=== PATIENT | male | born 1955 | race Caucasian/White ===

== ENCOUNTER 2017-05-09 10:42 | Emergency (ER) | payer MEDICARE, BC ==
--- NOTE | 2017-05-09 11:03 | ER Document Report ---
ED Medical Screen (RME) - General Chief Complaint: General Weakness Stated Complaint: WEAKNESS,URINARY PAIN Time Seen by Provider: 05/09/17 10:56 Mode of Arrival: Wheelchair Information source: Patient TRAVEL OUTSIDE OF THE [place] IN LAST 30 DAYS: No - HPI Patient complains to provider of: dysuria Onset: Other - 2 months Notes: 05/09/17 11:02 Patient is a 61-year-old male who recently moved to the area from [facility] while driving here Easter weekend he had explosive diarrhea, he did not have enough clothing with him to change his clothes so he washed the clothes in a hotel bathroom and we were those closed for 2 more days, since then he is experiencing dysuria with urinary frequency and incontinence at night which is unusual for him, he also complains of erythematous scabbed rash to his bilateral upper extremities, stating that he was previously treated for scabies with permethrin cream which does not seem to be helping - Related Data Allergies/Adverse Reactions: pregabalin [From Lyrica] Allergy (Verified 05/09/17 10:46) Past Medical History Renal/ Medical History: Denies: Hx Peritoneal Dialysis Physical Exam - Vital signs Vitals: Temp Pulse Resp BP Pulse Ox 98.0 F 76 16 126/67 H 96 05/09/17 10:47 05/09/17 10:47 05/09/17 10:47 05/09/17 10:47 05/09/17 10:47 Course - Vital Signs Vital signs: Temp Pulse Resp BP Pulse Ox 98.0 F 76 16 126/67 H 96 05/09/17 10:47 05/09/17 10:47 05/09/17 10:47 05/09/17 10:47 05/09/17 10:47
[2017-05-09 11:23] LABS: ABSOLUTE EOSINOPHILS # (AUTO) 0.1 10^3/uL (0.0-0.6); ABSOLUTE MONOCYTES (AUTO) 0.7 10^3/uL (0.1-1.4); ABSOLUTE NEUT (AUTO) 4.3 10^3/uL (1.7-8.2); BASOPHILS % (AUTO) 0.5 % (0-2); EOSINOPHILS % (AUTO) 2.4 % (0-6); HEMATOCRIT 34.8 % (37.9-51.0); HEMOGLOBIN 11.6 g/dL (13.5-17.0); LYMPHOCYTES % (AUTO) 16.5 % (13-45); MEAN CORPUSCULAR HEMOGLOBIN 31.1 pg (27.0-33.4); MEAN CORPUSCULAR HGB CONC 33.4 g/dL (32.0-36.0); MEAN CORPUSCULAR VOLUME 93 fl (80-97); MONOCYTES % (AUTO) 10.8 % (3-13); RED BLOOD COUNT 3.75 10^6/uL (4.35-5.55); RED CELL DISTRIBUTION WIDTH 14.5 % (11.5-14.0); SEGMENTED NEUTROPHILS % (AUTO) 69.8 % (42-78); WHITE BLOOD COUNT 6.1 10^3/uL (4.0-10.5)
--- NOTE | 2017-05-09 11:27 | ER Document Report ---
ED General - General Chief Complaint: General Weakness Stated Complaint: WEAKNESS,URINARY PAIN Time Seen by Provider: 05/09/17 10:56 Mode of Arrival: Wheelchair Information source: Patient, Relative Notes: 61 yr old male who travelled here from [place] 2 months ago and has not seen any physicians presents with complaints of urinary incontinence and weakness. pt is a diabetic, denies any fevers or chills, denies any burning of urination TRAVEL OUTSIDE OF THE [place] IN LAST 30 DAYS: No - HPI Onset: Other Onset/Duration: Persistent Quality of pain: No pain Severity: Mild Pain Level: Denies Associated symptoms: Weakness, Other Exacerbated by: Denies Relieved by: Denies Similar symptoms previously: No Recently seen / treated by doctor: No - Related Data Allergies/Adverse Reactions: pregabalin [From Lyrica] Allergy (Verified 05/09/17 10:46) Past Medical History - General Information source: Patient - Social History Smoking Status: Never Smoker Cigarette use (# per day): No Chew tobacco use (# tins/day): No Smoking Education Provided: No Frequency of alcohol use: None Drug Abuse: None Family History: Reviewed & Not Pertinent Patient has suicidal ideation: No Patient has homicidal ideation: No Endocrine Medical History: Reports: Hx Diabetes Mellitus Type 2 Renal/ Medical History: Denies: Hx Peritoneal Dialysis Musculoskeltal Medical History: Reports Hx Arthritis - Immunizations Hx Diphtheria, Pertussis, Tetanus Vaccination: No Review of Systems - Review of Systems Notes: REVIEW OF SYSTEMS: CONSTITUTIONAL : Denies fever, chills, or sweats. Denies recent illness. EENT: Denies eye, ear, throat, or mouth pain or symptoms. Denies nasal or sinus congestion or discharge. Denies throat, tongue, or mouth swelling or difficulty swallowing. CARDIOVASCULAR: Denies chest pain. Denies palpitations or racing or irregular heart beat. Denies ankle edema. RESPIRATORY: Denies cough, cold, or chest congestion. Denies shortness of breath, difficulty breathing, or wheezing. GASTROINTESTINAL: Denies abdominal pain or distention. Denies nausea, vomiting , or diarrhea. Denies blood in vomitus, stools, or per rectum. Denies black, tarry stools. Denies constipation. GENITOURINARY: admits to urinary frequency MUSCULOSKELETAL: Denies back or neck pain or stiffness. Denies joint pain or swelling. SKIN: admits to bug bites HEMATOLOGIC : Denies easy bruising or bleeding. LYMPHATIC: Denies swollen, enlarged glands. NEUROLOGICAL: admits to weakness PSYCHIATRIC: Denies anxiety or stress. Denies depression, suicidal ideation, or homicidal ideation. ALL OTHER SYSTEMS REVIEWED AND NEGATIVE. Dictation was performed using [employer] voice recognition software PHYSICAL EXAMINATION: GENERAL: Well-appearing, well-nourished and in no acute distress. HEAD: Atraumatic, normocephalic. EYES: Pupils equal round and reactive to light, extraocular movements intact, sclera anicteric, conjunctiva are normal. ENT: Nares patent, oropharynx clear without exudates. Moist mucous membranes. NECK: Normal range of motion, supple without lymphadenopathy LUNGS: Breath sounds clear to auscultation bilaterally and equal. No wheezes rales or rhonchi. HEART: Regular rate and rhythm without murmurs ABDOMEN: Soft, mild abdominal distention fluid level noted Musculoskeletal: Normal range of motion, no pitting or edema. No cyanosis. NEUROLOGICAL: Cranial nerves grossly intact. Normal speech, normal gait. Normal sensory, motor exams PSYCH: Normal mood, normal affect. SKIN: admits to mild erythema around the wounds Physical Exam - Vital signs Vitals: Temp Pulse Resp BP Pulse Ox 98.0 F 76 16 126/67 H 96 05/09/17 10:47 05/09/17 10:47 05/09/17 10:47 05/09/17 10:47 05/09/17 10:47 Course - Re-evaluation Re-evalutation: 05/09/17 11:27 pt is an unctrolled diabetic, pt will definitly require pcp 05/09/17 15:35 PT is consistent with ascites, patient wishes to have outpatient workup, I will have him take his diuretics which she is not taking and have ordered a paracentesis to evaluate the fluid which I believe is secondary to portal hypertension from cirrhosis. I spoke with the research lab assistant who requested the patient follow-up on Thursday morning Given the patient in no distress at this time deny having difficulty breathing I believe this is appropriate son has been instructed to bring back immediately if there are any other concerns After performing a Medical Screening Examination, I estimate there is LOW risk for ACUTE APPENDICITIS, BOWEL OBSTRUCTION, ACUTE CHOLECYSTITIS, PERFORATED DIVERTICULITIS, INCARCERATED HERNIA, PANCREATITIS, or PERFORATED ULCER, thus I consider the discharge disposition reasonable. Also, there is no evidence or peritonitis, sepsis, or toxicity. I have reevaluated this patient multiple times and no significant life threatening changes are noted. The patient and I have discussed the diagnosis and risks, and we agree with discharging home with close follow-up with the understanding that symptoms and presentations can change. We also discussed returning to the Emergency Department immediately if new or worsening symptoms occur. We have discussed the symptoms which are most concerning (e.g., bloody stool, fever, changing or worsening pain, intractable vomiting - standard verbal up date) that necessitate immediate return. - Vital Signs Vital signs: Temp Pulse Resp BP Pulse Ox 98.0 F 76 16 126/67 H 96 05/09/17 10:47 05/09/17 10:47 05/09/17 10:47 05/09/17 10:47 05/09/17 10:47 - Laboratory Result Diagrams: 05/09/17 11:10 05/09/17 11:10 Laboratory results interpreted by me: 05/09/17 05/09/17 05/09/17 11:10 11:10 11:52 RBC 3.75 L Hgb 11.6 L Hct 34.8 L RDW 14.5 H Plt Count 136 L Potassium 3.4 L Glucose 240 H Total Bilirubin 2.6 H Direct Bilirubin 0.8 H Albumin 3.0 L Urine Protein 30 H Urine Blood LARGE H - Diagnostic Test Radiology reviewed: Image reviewed, Reports reviewed - Ascites Discharge - Discharge Clinical Impression: Weakness, Portal hypertension, Hyperglycemia Ascites Qualifiers: Ascites type: other type Qualified Code(s): R18.8 - Other ascites Condition: Stable Disposition: HOME, SELF-CARE Additional Instructions: Ascites is the accumulation of protein-containing (ascitic) fluid within the abdomen. * Many disorders can cause ascites, but the most common is high blood pressure in the veins that bring blood to the liver (portal hypertension), which is usually due to cirrhosis. * If large amounts of fluid accumulate, the abdomen becomes very large, sometimes making people lose their appetite and feel short of breath and uncomfortable. * Analysis of the fluid can help determine the cause. * Usually, a low-sodium diet and diuretics can help eliminate excess fluid. * * You must have a paracentesis performed to analyze the fluid Forms: Follow-Up Radiology Testing
[2017-05-09 11:39] LABS: ALANINE AMINOTRANSFERASE 29 U/L (21-72); ALKALINE PHOSPHATASE 116 U/L (38-126); ANION GAP 9 (5-19); ASPARTATE AMINO TRANSFERASE 30 U/L (17-59); BILIRUBIN,DIRECT 0.8 mg/dL (0.0-0.4); BILIRUBIN,TOTAL 2.6 mg/dL (0.2-1.3); BLOOD UREA NITROGEN 9 mg/dL (7-20); CALCIUM 8.5 mg/dL (8.4-10.2); CARBON DIOXIDE 30 mmol/L (22-30); CHLORIDE 99 mmol/L (98-107); CREATININE RESULT 0.86 mg/dL (0.52-1.25); GLUCOSE 240 mg/dL (75-110); POTASSIUM 3.4 mmol/L (3.6-5.0); TOTAL PROTEIN 7.3 g/dL (6.3-8.2)
[2017-05-09 12:25] LABS: APPEARANCE,URINE CLEAR; BILIRUBIN,URINE NEGATIVE (NEGATIVE); GLUCOSE, URINE NEGATIVE (NEGATIVE); KETONES,URINE NEGATIVE (NEGATIVE); LEUKOCYTE ESTERASE,URINE NEGATIVE (NEGATIVE); NITRITE,URINE NEGATIVE (NEGATIVE); PROTEIN,URINE 30 mg/dL (NEGATIVE); URINE SPECIFIC GRAVITY 1.006; UROBILINOGEN,URINE NEGATIVE mg/dL (<2.0)
--- NOTE | 2017-05-09 14:35 | RADIOLOGY REPORT (SQ) ---
EXAM DESCRIPTION: CT LTD RENAL STONE PROTOCOL ON COMPLETED DATE/TIME: 05/09/2017 1:57 pm REASON FOR STUDY: hematuria COMPARISON: None. TECHNIQUE: CT scan of the abdomen and pelvis performed without intravenous or oral contrast. Images reviewed with lung, soft tissue, and bone windows. Reconstructed coronal and sagittal MPR images revi ewed. All images stored on PACS. All CT scanners at this facility use dose modulation, iterative reconstruction, and/or weight based d osing when appropriate to reduce radiation dose to as low as reasonably achievable (ALARA). [facility]: Dose Right [facility]: CareDose [facility]: Dose Right [facility]: Teradose 4D [facility]: [employer] RADIATION DOSE: 26.58mGy. LIMITATIONS: None. FINDINGS: LOWER CHEST: Bibasilar bandlike atelectasis. NON-CONTRASTED LIVER, SPLEEN, ADRENALS: Liver is small with a nodular contour indicating cirrhosis. Splenomegaly, 14 cm in length. Adrenal glands unremarkable PANCREAS: No masses. No peripancreatic inflammatory changes. GALLBLADDER: No identified stones by CT criteria. No inflammatory changes to suggest cholecystitis. RIGHT KIDNEY AND URETER: No suspicious masses. Assessment limited by lack of IV contrast. No signif icant calcifications. No hydronephrosis or hydroureter. LEFT KIDNEY AND URETER: No suspicious masses. Assessment limited by lack of IV contrast. No signifi cant calcifications. No hydronephrosis or hydroureter. AORTA AND RETROPERITONEUM: No aneurysm. No retroperitoneal masses or adenopathy. BOWEL AND PERITONEAL CAVITY: Large amount of ascites throughout the abdomen and pelvis. No CT eviden ce of bowel obstruction. APPENDIX: Not identified PELVIS, BLADDER, AND ABDOMINAL WALL:Large amount of free pelvic fluid. Limited view of the bladder a nd rectum are unremarkable. No adenopathy. BONES: Diffuse degenerative disc changes. OTHER: No other significant finding. IMPRESSION: Thyroid chest with portal hypertension, splenomegaly, and ascites No CT findings to explain history of hematuria TECHNICAL DOCUMENTATION: JOB ID: [id number] Quality ID # [id number]: Final reports with documentation of one or more dose reduction techniques (e.g., Au tomated exposure control, adjustment of the mA and/or kV according to patient size, use of iterative reconstruction technique) 2010 [employer]- All Rights Reserved
[2017-05-09 15:40] LABS: PROTHROMBIN TIME 16.1 SEC (11.4-15.4)
[2017-05-09 16:15] VITALS: BP 120/74
== END 2017-05-09 16:15 | disposition home or self-care (01) ==
LOC: ER 10:42
DX: E11.65 Type 2 diabetes mellitus with hyperglycemia (principal); I10 Essential (primary) hypertension; R53.1 Weakness; R18.8 Other ascites; R30.9 Painful micturition, unspecified
CPT/HCPCS: 36415; 76380; 80053; 81001; 85025; 85610; 87086; 99285

== ENCOUNTER 2017-06-02 14:01 | Emergency (ER) | payer MEDICARE, BC ==
--- NOTE | 2017-06-02 14:06 | ER Document Report ---
ED General - General Stated Complaint: WEAKNESS Mode of Arrival: Medic Information source: Patient, Emergency Med Personnel Notes: 61-year-old male presents with complaints of UTI and generalized weakness unable to ambulate and extensive swelling of lower extremities. Patient has been unable to get off his couch has not been able to ambulate. TRAVEL OUTSIDE OF THE [place] IN LAST 30 DAYS: No - HPI Onset: Last week Onset/Duration: Persistent Quality of pain: No pain Severity: Moderate Pain Level: Denies Associated symptoms: Weakness Exacerbated by: Denies Relieved by: Denies Similar symptoms previously: Yes Recently seen / treated by doctor: Yes - Related Data Allergies/Adverse Reactions: pregabalin [From Lyrica] Allergy (Verified 06/02/17 16:51) Past Medical History - Social History Smoking Status: Never Smoker Cigarette use (# per day): No Chew tobacco use (# tins/day): No Smoking Education Provided: No Family History: Reviewed & Not Pertinent Endocrine Medical History: Reports: Hx Diabetes Mellitus Type 2 Renal/ Medical History: Denies: Hx Peritoneal Dialysis Musculoskeltal Medical History: Reports Hx Arthritis - Immunizations Hx Diphtheria, Pertussis, Tetanus Vaccination: No Review of Systems - Review of Systems Notes: REVIEW OF SYSTEMS: CONSTITUTIONAL : Denies fever, chills, or sweats. Denies recent illness. EENT: Denies eye, ear, throat, or mouth pain or symptoms. Denies nasal or sinus congestion or discharge. Denies throat, tongue, or mouth swelling or difficulty swallowing. CARDIOVASCULAR: Denies chest pain. Denies palpitations or racing or irregular heart beat. Denies ankle edema. RESPIRATORY: Denies cough, cold, or chest congestion. Denies shortness of breath, difficulty breathing, or wheezing. GASTROINTESTINAL: Denies abdominal pain or distention. Denies nausea, vomiting , or diarrhea. Denies blood in vomitus, stools, or per rectum. Denies black, tarry stools. Denies constipation. GENITOURINARY: Denies difficulty urinating, painful urination, burning, frequency, blood in urine, or discharge. MUSCULOSKELETAL: Denies back or neck pain or stiffness. Denies joint pain or swelling. SKIN: Denies rash, lesions or sores. HEMATOLOGIC : Denies easy bruising or bleeding. LYMPHATIC: Denies swollen, enlarged glands. NEUROLOGICAL: Generalized weakness PSYCHIATRIC: Denies anxiety or stress. Denies depression, suicidal ideation, or homicidal ideation. ALL OTHER SYSTEMS REVIEWED AND NEGATIVE. Dictation was performed using [employer] voice recognition software PHYSICAL EXAMINATION: GENERAL: Morbidly obese male HEAD: Atraumatic, normocephalic. EYES: Pupils equal round and reactive to light, extraocular movements intact, sclera anicteric, conjunctiva are normal. ENT: Nares patent, oropharynx clear without exudates. Moist mucous membranes. NECK: Normal range of motion, supple without lymphadenopathy LUNGS: Breath sounds clear to auscultation bilaterally and equal. No wheezes rales or rhonchi. HEART: Regular rate and rhythm without murmurs ABDOMEN: Soft, large abdominal Musculoskeletal: 3 pitting edema bilateral lower extremity NEUROLOGICAL: Generalized weakness PSYCH: Normal mood, normal affect. SKIN: Warm, Dry, normal turgor, no rashes or lesions noted. Physical Exam - Vital signs Vitals: Temp Pulse BP Pulse Ox 97.5 F 78 93/45 L 96 06/02/17 14:19 06/02/17 14:19 06/02/17 14:19 06/02/17 14:19 Course - Re-evaluation Re-evalutation: 06/02/17 14:06 Lab work pending I expect admission given patient is unable to even ambulate 06/02/17 18:57 Patient pending admission for hypoxemia this of heart failure fluid overload awaiting hospitalist 06/02/17 19:37 Pt intermittently hypotensive, given another fluid bolus, attempted to [facility] to [facility], deferred due to lack of icu bed. 06/02/17 19:38 vidant paged for transfer 06/02/17 19:54 Spoke with program paraprofessional accepting on behalf of Dr Coley 06/02/17 20:11 - Vital Signs Vital signs: Temp Pulse Resp BP Pulse Ox 97.3 F 78 0 L 100/52 L 94 06/02/17 17:01 06/02/17 14:19 06/02/17 19:39 06/02/17 19:40 06/02/17 19:40 - Laboratory Result Diagrams: 06/02/17 14:53 06/02/17 14:53 Laboratory results interpreted by me: 06/02/17 06/02/17 06/02/17 14:53 14:53 14:53 RBC 3.57 L Hgb 11.3 L Hct 33.7 L RDW 15.6 H Plt Count 143 L Lymphocytes % 12.8 L PT 18.4 H VBG HCO3 Sodium 135.3 L Chloride 96 L BUN 26 H Creatinine 1.62 H Est GFR ( Amer) 53 L Est GFR (Non-Af Amer) 44 L Glucose 237 H POC Glucose Lactic Acid Total Bilirubin 2.7 H Direct Bilirubin 1.0 H Creatine Kinase NT-Pro-B Natriuret Pep Albumin 2.6 L Urine Urobilinogen 06/02/17 06/02/17 06/02/17 14:53 14:53 14:53 RBC Hgb Hct RDW Plt Count Lymphocytes % PT VBG HCO3 32.2 H Sodium Chloride BUN Creatinine Est GFR ( Amer) Est GFR (Non-Af Amer) Glucose POC Glucose Lactic Acid 2.5 H Total Bilirubin Direct Bilirubin Creatine Kinase 44 L NT-Pro-B Natriuret Pep Albumin Urine Urobilinogen 06/02/17 06/02/17 06/02/17 14:53 16:28 16:33 RBC Hgb Hct RDW Plt Count Lymphocytes % PT VBG HCO3 Sodium Chloride BUN Creatinine Est GFR ( Amer) Est GFR (Non-Af Amer) Glucose POC Glucose 217 H Lactic Acid Total Bilirubin Direct Bilirubin Creatine Kinase NT-Pro-B Natriuret Pep 1200 H Albumin Urine Urobilinogen 2.0 H - Diagnostic Test Radiology reviewed: Image reviewed, Reports reviewed - cardiac silhouette enlargement - EKG Interpretation by Me EKG shows normal: Sinus rhythm, [place], Intervals, QRS Complexes Discharge - Discharge Clinical Impression: Morbid obesity, Peripheral edema, Weakness Hypotension Qualifiers: Hypotension type: unspecified hypotension type Qualified Code(s): I95.9 - Hypotension, unspecified Condition: Poor Disposition: [facility]
[2017-06-02] MEDS ORDERED: NORMAL SALINE 1000 ML 1,000 ML IV ONE ×2 (14:31→19:21)
[2017-06-02 15:14] LABS: VENOUS BLOOD BASE EXCESS 6.1 mmol/L; VENOUS BLOOD HCO3 32.2 mmol/L (20-32); VENOUS BLOOD PCO2 53.2 mmHg (35-63); VENOUS BLOOD PH 7.4 (7.30-7.42)
[2017-06-02 15:20] LABS: ABSOLUTE BASOPHILS # (AUTO) 0.1 10^3/uL (0.0-0.2); ABSOLUTE EOSINOPHILS # (AUTO) 0.1 10^3/uL (0.0-0.6); ABSOLUTE LYMPHOCYTES (AUTO) 1.1 10^3/uL (0.5-4.7); ABSOLUTE NEUT (AUTO) 6.6 10^3/uL (1.7-8.2); BASOPHILS % (AUTO) 0.6 % (0-2); EOSINOPHILS % (AUTO) 1.3 % (0-6); HEMATOCRIT 33.7 % (37.9-51.0); HEMOGLOBIN 11.3 g/dL (13.5-17.0); HGB HCT DIFFERENCE 0.2; LYMPHOCYTES % (AUTO) 12.8 % (13-45); MEAN CORPUSCULAR HEMOGLOBIN 31.5 pg (27.0-33.4); MEAN CORPUSCULAR HGB CONC 33.4 g/dL (32.0-36.0); MEAN CORPUSCULAR VOLUME 94 fl (80-97); MONOCYTES % (AUTO) 11.6 % (3-13); RED BLOOD COUNT 3.57 10^6/uL (4.35-5.55); RED CELL DISTRIBUTION WIDTH 15.6 % (11.5-14.0); SEGMENTED NEUTROPHILS % (AUTO) 73.7 % (42-78)
[2017-06-02 15:24] LABS: PROTHROMBIN TIME 18.4 SEC (11.4-15.4)
[2017-06-02 15:41] LABS: ALANINE AMINOTRANSFERASE 23 U/L (21-72); ALBUMIN 2.6 g/dL (3.5-5.0); ALKALINE PHOSPHATASE 109 U/L (38-126); ANION GAP 10 (5-19); ASPARTATE AMINO TRANSFERASE 29 U/L (17-59); BILIRUBIN,TOTAL 2.7 mg/dL (0.2-1.3); BLOOD UREA NITROGEN 26 mg/dL (7-20); CALCIUM 8.4 mg/dL (8.4-10.2); CARBON DIOXIDE 29 mmol/L (22-30); CHLORIDE 96 mmol/L (98-107); CREATININE RESULT 1.62 mg/dL (0.52-1.25); GLUCOSE 237 mg/dL (75-110); POTASSIUM 4.1 mmol/L (3.6-5.0); SODIUM 135.3 mmol/L (137-145); TOTAL PROTEIN 6.9 g/dL (6.3-8.2)
[2017-06-02 16:47] LABS: APPEARANCE,URINE CLEAR; BILIRUBIN,URINE NEGATIVE (NEGATIVE); GLUCOSE, URINE NEGATIVE (NEGATIVE); KETONES,URINE NEGATIVE (NEGATIVE); LEUKOCYTE ESTERASE,URINE NEGATIVE (NEGATIVE); NITRITE,URINE NEGATIVE (NEGATIVE); PROTEIN,URINE NEGATIVE (NEGATIVE)
--- NOTE | 2017-06-02 18:04 | RADIOLOGY REPORT (SQ) ---
EXAM DESCRIPTION: CHEST PA/LAT COMPLETED DATE/TIME: 06/02/2017 5:49 pm REASON FOR STUDY: weakness COMPARISON: None. EXAM PARAMETERS: NUMBER OF VIEWS: two views TECHNIQUE: Digital Frontal and Lateral radiographic views of the chest acquired. RADIATION DOSE: NA LIMITATIONS: Study is limited due to the patient's body habitus and shallow inspiration. FINDINGS: LUNGS AND PLEURA: No opacities, masses or pneumothorax. No pleural effusion. Minimal line ar densities are identified most consistent with atelectatic changes. MEDIASTINUM AND HILAR STRUCTURES: No masses or contour abnormalities. HEART AND VASCULAR STRUCTURES: There is some prominence of the cardiac silhouette which may be in par t related to the shallow inspiration. A degree of pulmonary vascular congestion is seen which may al so be in part related to the shallow inspiration. BONES: No acute findings. HARDWARE: None in the chest. OTHER: No other significant finding. IMPRESSION: Limited study as noted above. No obvious consolidations or pleural effusions are identi fied. Other findings as noted above TECHNICAL DOCUMENTATION: JOB ID: [id number] [employer]- All Rights Reserved
[2017-06-02 18:10] LABS: CREATINE KINASE MB 1.32 ng/mL (<4.55); TROPONIN I 0.017 ng/mL
[2017-06-02] MEDS ORDERED: FUROSEMIDE INJ/PF 100 MG/10 ML SDV IV ONE (18:18)
--- NOTE | 2017-06-02 19:04 | EKG REPORT ---
SEVERITY:- ABNORMAL ECG - SINUS RHYTHM DIFFUSE NOSPECIFIC ST-T CHANGES : Confirmed by: Bayron Mancia MD 02-Jun-2017 19:03:52
[2017-06-02 21:20] VITALS: BP 111/56
== END 2017-06-02 21:25 | disposition short-term general hospital (02) ==
LOC: ER 14:01
DX: E66.01 Morbid (severe) obesity due to excess calories (principal); R60.9 Edema, unspecified; R53.1 Weakness; I95.9 Hypotension, unspecified; E11.9 Type 2 diabetes mellitus without complications
CPT/HCPCS: 93005; 99285; 51701; 36415; 87040; 87086; 82553; 82962; 82550; 85025; 85610; 80053; 81001; 84484; 82803; 83605; 83880; 71020; 93010; J7030

== ENCOUNTER 2017-07-12 23:20 | Inpatient (IN) | payer MEDICARE, BC ==
[2017-07-12] MEDS ORDERED: NORMAL SALINE 1000 ML 1,000 ML IV ONE (23:34)
--- NOTE | 2017-07-12 23:39 | ER Document Report ---
ED General - General Stated Complaint: ALTERED MENTAL STATUS Time Seen by Provider: 07/12/17 23:24 Cannot obtain history due to: Altered mental status Notes: Patient is a 61-year-old male with a past medical history of chronic kidney disease, liver cirrhosis with associated ascites, hypertension, and no additional known per EMS who presents with altered mental status and apparently one episode of a bloody bowel movement. EMS has minimal history stating only that the nursing facility reports that patient is not acting his pain is baseline which is typically alert, oriented and able to converse normally. This is apparently been ongoing for the past 36 hours. Staff became concerned when he apparently had a bloody bowel movement tonight. No additional history can be obtained as EMS does not have additional information and patient is completely unable to provide any meaningful history. TRAVEL OUTSIDE OF THE [place] IN LAST 30 DAYS: No - Related Data Allergies/Adverse Reactions: pregabalin [From Lyrica] Allergy (Verified 06/02/17 16:51) Past Medical History - General Information source: Emergency Med Personnel Cannot obtain history due to: Altered mental status - Social History Smoking Status: Unknown if Ever Smoked Lives with: [facility] Family History: Reviewed & Not Pertinent - Past Medical History Cardiac Medical History: Reports: Hx Hypertension Endocrine Medical History: Reports: Hx Diabetes Mellitus Type 2 Renal/ Medical History: Denies: Hx Peritoneal Dialysis Musculoskeltal Medical History: Reports Hx Arthritis Past Surgical History: Reports: Hx Orthopedic Surgery - Immunizations Hx Diphtheria, Pertussis, Tetanus Vaccination: No Review of Systems - Review of Systems -: Yes ROS unobtainable due to patient's medical condition Physical Exam - Vital signs Interpretation: Hypertensive, Tachycardic Notes: PHYSICAL EXAMINATION: GENERAL: Disheveled, morbidly obese, encephalopathic repeating the same phrase over and over again HEAD: Atraumatic, normocephalic. EYES: Pupils equal round and reactive to light, extraocular movements intact, sclera anicteric, conjunctiva are normal. ENT: nares patent, oropharynx clear without exudates. Moderately dry mucous membranes. NECK: Normal range of motion, supple without lymphadenopathy LUNGS: Breath sounds clear to auscultation bilaterally and equal. No wheezes rales or rhonchi. HEART: Regular rate and rhythm without murmurs ABDOMEN: Protuberant abdomen, positive fluid wave. Hepatosplenomegaly appreciated. Bowel sounds present. Rectal: Brown stool, no blood EXTREMITIES: Pitting edema in the bilateral lower extremities that is equal and symmetric. NEUROLOGICAL: No focal neurological deficits. Moves all extremities spontaneously. Patient will not follow commands PSYCH: Restless, altered, repeating the same phrase SKIN: Warm, Dry, normal turgor, there is a stage II sacral decubitus ulcer Course - Re-evaluation Re-evalutation: 07/12/17 23:36 Patient presents altered, continuously repeating "quiet down quite down shut up out there". He does not provide any meaningful history and is not able to answer any questions. His baseline is apparently awake alert and speaking in coherent sentences. Per EMS report patient also currently had a large bloody bowel movement prior to arrival which was the indication at the nursing facility sent him to the emergency department. Review of prior records indicates the patient has a history of liver failure, renal failure, and a history of prior urinary tract infections. Patient's initial vitals do show mild tachycardia initial rate 108, 97% on 3 L nasal cannula which is patient's baseline. He is also apparently had significantly decreased urine output in the last several days into the Morales bag. The Morales bag is noted to have a grossly dark, jovanna color urine. Patient does have prominent fluid ascites on immediate bedside ultrasound. A sample of this fluid was obtained shortly upon patient's arrival to evaluate for a possible spontaneous bacterial peritonitis. Patient is critically ill given his degree of altered mental status, tenuous vital signs, and concern for an active rectal bleed. 07/13/17 01:17 Patient has remained extremely altered continuing to repeat the same phrases before. Rectal exam shows absolutely no blood so I am uncertain of the accuracy of the report given by EMS of a bloody bowel movement as his diaper contained no blood and rectal examination showed only brown stool without even a trace of bright red blood. His hemoglobin is also at his baseline. Laboratories otherwise are concerning showing slightly worsening of his liver failure with an increased INR relative to his prior, slightly worse LFTs and elevated bilirubin to 3.3. His ammonia is also markedly elevated which I suspect is likely the etiology of his altered mental status. He also has an acute kidney injury superimposed on his baseline chronic kidney disease that appears to be a prerenal azotemia. BUN creatinine ratio greater than 20. No evidence of spontaneous bacterial peritonitis based on peritoneal tap. Chest x- ray is clear with exception of low lung volumes. Will give rectal lactulose. He has been given Lasix, dextrose and insulin for his hyperkalemia. Will also treat with a small dose of Haldol given his ongoing agitation and difficulty in continuing to comply with keeping lines and oxygen supplementation in place. I discussed this case with Dr. Olaf Bell who will admit. - Laboratory Result Diagrams: 07/12/17 23:50 07/12/17 23:50 Laboratory results interpreted by me: 07/12/17 07/12/17 07/12/17 23:50 23:50 23:50 RBC 3.34 L Hgb 11.5 L Hct 34.1 L MCV 102 H MCH 34.5 H RDW 18.1 H Lymphocytes % 10.3 L PT APTT VBG pCO2 VBG HCO3 Sodium 130.8 L Potassium 6.1 H* Chloride 91 L Carbon Dioxide 31 H BUN 78 H Creatinine 2.13 H Est GFR ( Amer) 38 L Est GFR (Non-Af Amer) 32 L Magnesium Total Bilirubin 3.3 H Direct Bilirubin 1.8 H AST 74 H Alkaline Phosphatase 156 H Ammonia 89.5 H Creatine Kinase 54 L Albumin 2.4 L 07/12/17 07/12/17 07/12/17 23:50 23:50 23:50 RBC Hgb Hct MCV MCH RDW Lymphocytes % PT 22.1 H APTT 46.8 H VBG pCO2 74.4 H* VBG HCO3 36.9 H Sodium Potassium Chloride Carbon Dioxide BUN Creatinine Est GFR ( Amer) Est GFR (Non-Af Amer) Magnesium 3.3 H Total Bilirubin Direct Bilirubin AST Alkaline Phosphatase Ammonia Creatine Kinase Albumin - Diagnostic Test Radiology reviewed: Image reviewed, Reports reviewed Radiology results interpreted by me: 07/13/17 01:29 Chest x-ray: No acute infiltrate or pneumothorax Critical Care Note - Critical Care Note Total time excluding time spent on procedures (mins): 45 Comments: Critical care time spent obtaining history from patient or surrogate, discussions with consultants, development of treatment plan with patient or surrogate, evaluation of patient's response to treatment, examination of patient , ordering and performing treatments and interventions, ordering and review of laboratory studies, re-evaluation of patient's condition, ordering and review of radiographic studies and review of old charts Discharge - Discharge Clinical Impression: Hyperammonemia, Acute kidney injury superimposed on chronic kidney disease, Hyperkalemia Altered mental status Qualifiers: Altered mental status type: delirium Qualified Code(s): R41.0 - Disorientation , unspecified Condition: Fair Disposition: ADMITTED INPATIENT [facility] Unit Admitted: [facility]
[2017-07-13 00:18] LABS: ABSOLUTE EOSINOPHILS # (AUTO) 0.2 10^3/uL (0.0-0.6); ABSOLUTE MONOCYTES (AUTO) 1.1 10^3/uL (0.1-1.4); ABSOLUTE NEUT (AUTO) 7.3 10^3/uL (1.7-8.2); BASOPHILS % (AUTO) 0.5 % (0-2); EOSINOPHILS % (AUTO) 2.1 % (0-6); HEMATOCRIT 34.1 % (37.9-51.0); HEMOGLOBIN 11.5 g/dL (13.5-17.0); HGB HCT DIFFERENCE 0.4; LYMPHOCYTES % (AUTO) 10.3 % (13-45); MEAN CORPUSCULAR HEMOGLOBIN 34.5 pg (27.0-33.4); MEAN CORPUSCULAR HGB CONC 33.8 g/dL (32.0-36.0); MEAN CORPUSCULAR VOLUME 102 fl (80-97); MONOCYTES % (AUTO) 11.1 % (3-13); RED BLOOD COUNT 3.34 10^6/uL (4.35-5.55); RED CELL DISTRIBUTION WIDTH 18.1 % (11.5-14.0); WHITE BLOOD COUNT 9.7 10^3/uL (4.0-10.5)
[2017-07-13 00:20] LABS: VENOUS BLOOD BASE EXCESS 7.8 mmol/L; VENOUS BLOOD HCO3 36.9 mmol/L (20-32); VENOUS BLOOD PH 7.31 (7.30-7.42)
--- NOTE | 2017-07-13 00:20 | RADIOLOGY REPORT (SQ) ---
EXAM DESCRIPTION: CHEST SINGLE VIEW COMPLETED DATE/TIME: 07/13/2017 12:01 am REASON FOR STUDY: ams, sob COMPARISON: 06/02/2017. EXAM PARAMETERS: NUMBER OF VIEWS: One view. TECHNIQUE: Single frontal radiographic view of the chest acquired. RADIATION DOSE: NA LIMITATIONS: None. FINDINGS: LUNGS AND PLEURA: Small lung volumes. Moderate right lower lobar bandlike atelectasis or scar. Small left basilar atelectasis/ opacity. MEDIASTINUM AND HILAR STRUCTURES: No masses. Contour normal. HEART AND VASCULAR STRUCTURES: Heart normal in size. Normal vasculature. BONES: No acute findings. HARDWARE: None in the chest. OTHER: No other significant finding. IMPRESSION: No significant interval change. Small lung volumes and small bibasilar opacities. TECHNICAL DOCUMENTATION: JOB ID: [id number]
[2017-07-13 00:22] LABS: VENOUS BLOOD PCO2 74.4 mmHg (35-63)
[2017-07-13 00:26] LABS: PROTHROMBIN TIME 22.1 SEC (11.4-15.4)
[2017-07-13 00:27] LABS: PARTIAL THROMBOPLASTIN TIME 46.8 SEC (23.5-35.8)
[2017-07-13 00:33] LABS: ALANINE AMINOTRANSFERASE 43 U/L (21-72); ALBUMIN 2.4 g/dL (3.5-5.0); ALKALINE PHOSPHATASE 156 U/L (38-126); ANION GAP 9 (5-19); ASPARTATE AMINO TRANSFERASE 74 U/L (17-59); BILIRUBIN,DIRECT 1.8 mg/dL (0.0-0.4); BILIRUBIN,TOTAL 3.3 mg/dL (0.2-1.3); BLOOD UREA NITROGEN 78 mg/dL (7-20); CALCIUM 8.4 mg/dL (8.4-10.2); CARBON DIOXIDE 31 mmol/L (22-30); CHLORIDE 91 mmol/L (98-107); CREATINE KINASE 54 U/L (55-170); CREATININE RESULT 2.13 mg/dL (0.52-1.25); GLUCOSE 101 mg/dL (75-110); SODIUM 130.8 mmol/L (137-145)
[2017-07-13 00:35] LABS: POTASSIUM 6.1 mmol/L (3.6-5.0)
[2017-07-13 00:46] LABS: CREATINE KINASE MB 2.04 ng/mL (<4.55)
[2017-07-13 00:48] LABS: TROPONIN I 0.053 ng/mL
[2017-07-13] MEDS ORDERED: LACTULOSE SYRUP 20 GM/30 ML UDCUP PR ONE (01:05)
[2017-07-13] MEDS ORDERED: FUROSEMIDE INJ/PF 20 MG/2 ML SDV IV ONE (01:07)
[2017-07-13] MEDS ORDERED: DEXTROSE 50%-WATER 25 GM/50 ML DISP.SYRIN IV ONE (01:07)
[2017-07-13] MEDS ORDERED: INSULIN REG, HUMAN 100 UNIT/ML 3 ML VIAL (PYX) IV ONE (01:07)
[2017-07-13] MEDS ORDERED: HALOPERIDOL LACTATE INJ 5 MG/1 ML VIAL IV ONE ×2 (01:07→01:50)
[2017-07-13 01:10] LABS: FLUID APPEARANCE SLIGHTLY HAZY; FLUID TYPE PERITONEAL
[2017-07-13 01:11] LABS: FLUID RBC AVERAGE 186.5; FLUID RBC DILUENT USED SALINE; FLUID RBC DILUTION FACTOR 20; FLUID RBC SIDE 1 180; FLUID RBC SIDE 2 193; TOTAL RBC SQUARES COUNTED FLD 225
[2017-07-13] MEDS ORDERED: THIAMINE HCL 100 MG, FOLIC ACID 1 MG in NORMAL SALINE 50 ML IV ONE ×2 (01:29→10:30)
[2017-07-13] MEDS ORDERED: MAGNESIUM HYDROXIDE SUSP 30 ML UDCUP PO PRN (01:29)
[2017-07-13] MEDS ORDERED: PHYTONADIONE INJ 10 MG/1 ML AMPULE SUBCUT ONE (01:29)
[2017-07-13] MEDS ORDERED: LACTULOSE SYRUP 20 GM/30 ML UDCUP ONE (02:38)
[2017-07-13] MEDS: LACTULOSE SYRUP 20 GM/30 ML UDCUP PO SCH ×2 (02:45→08:37)
[2017-07-13 04:08] LABS: AMORPHOUS SEDIMENT,URINE TRACE /HPF; APPEARANCE,URINE CLOUDY; BILIRUBIN,URINE NEGATIVE (NEGATIVE); GLUCOSE, URINE NEGATIVE (NEGATIVE); KETONES,URINE NEGATIVE (NEGATIVE); LEUKOCYTE ESTERASE,URINE LARGE (NEGATIVE); NITRITE,URINE NEGATIVE (NEGATIVE); PROTEIN,URINE NEGATIVE (NEGATIVE)
[2017-07-13 04:17] LABS: URINE BARBITURATES SCREEN NEGATIVE; URINE METHADONE SCREEN NEGATIVE; URINE OPIATES LOW UNCONFIRMED POSITIVE; URINE PHENCYCLIDINE SCREEN NEGATIVE
[2017-07-13] MEDS ORDERED: DOPAMINE HCL/DEXTROSE 5%-WATER 800 MG/250 ML RTUINJ IV ONE (05:00)
[2017-07-13] MEDS ORDERED: ALBUMIN HUMAN 50 ML IV SCH (05:09)
[2017-07-13] MEDS: DOPAMINE HCL 800 MG/D5W 250 ML IV PRN (05:10)
[2017-07-13] MEDS ORDERED: FOLIC ACID INJ 5 MG/1 ML 10 ML VIAL ONE (05:34)
[2017-07-13] MEDS ORDERED: THIAMINE HCL INJ 200 MG/2 ML VIAL ONE (05:37)
[2017-07-13] MEDS ORDERED: CALCIUM GLUCONATE 2,000 MG in DEXTROSE 5%-WATER 100 ML IV ONE ×2 (05:43→10:30)
--- NOTE | 2017-07-13 05:43 | PDOC H&P ---
History of Present Illness Admission Date/PCP: 07/13/17 01:29 Patient complains of: Altered mental status History of Present Illness: SAVITA GOYAL is a 61 year old male with a past medical history of hepatic and renal failure, Morbid obesity and oxygen dependent COPD. Who is a snf resident accompanied by limited history and an extremely poor historian. He is referred to the emergency room for an apparent episode of blood per rectum. In the emergency room he has negative Hemoccult stool and a hemoglobin at baseline. He is however severely encephalopathic unable to follow commands. He is found to be in hepatorenal failure, with an ammonia level of 90. Hyperkalemia of 6.1 and coagulopathy. Peritoneal fluid is unremarkable for infection, he is referred to the hospitalist for admission. Past Medical History Cardiac Medical History: Reports: Hypertension Pulmonary Medical History: Reports: Chronic Obstructive Pulmonary Disease (COPD) Endocrine Medical History: Reports: Diabetes Mellitus Type 2 GI Medical History: Reports: Cirrhosis Musculoskeltal Medical History: Reports: Arthritis Past Surgical History Past Surgical History: Reports: Orthopedic Surgery Social History Information Source: [facility] Records Lives with: Skilled Nursing Smoking Status: Unknown if Ever Smoked Family History Family History: Reviewed & Not Pertinent Parental Family History Reviewed: Yes Children Family History Reviewed: Yes Sibling(s) Family History Reviewed.: Yes Medication/Allergy Home Medications: Clindamycin HCl 300 mg PO Q6 #40 capsule 05/09/17 Allergies/Adverse Reactions: pregabalin [From Lyrica] Allergy (Verified 06/02/17 16:51) Review of Systems ROS unobtainable: Due to mental status Physical Exam Vital Signs: Temp Pulse Resp BP Pulse Ox 97.9 F 11 L 103/65 98 07/13/17 03:00 07/13/17 03:09 07/13/17 03:09 07/13/17 03:09 Intake & Output 07/11/17 07/12/17 07/13/17 11:59 11:59 11:59 Weight 142.6 kg General appearance: PRESENT: disheveled, morbidly obese, severe distress Head exam: PRESENT: atraumatic, normocephalic Eye exam: PRESENT: conjunctiva pink, EOMI, PERRLA. ABSENT: scleral icterus Ear exam: PRESENT: normal external ear exam Mouth exam: PRESENT: moist, tongue midline Neck exam: ABSENT: carotid bruit, JVD, lymphadenopathy, thyromegaly Respiratory exam: PRESENT: crackles, decreased breath sounds, prolonged expiratory phas, symmetrical, tachypnea Cardiovascular exam: PRESENT: RRR. ABSENT: diastolic murmur, rubs, systolic murmur Pulses: PRESENT: normal dorsalis pedis pul Vascular exam: PRESENT: normal capillary refill GI/Abdominal exam: PRESENT: ascites, diminished bowel sounds, distended, firm, hypoactive bowel sounds, soft. ABSENT: guarding, tenderness Rectal exam: PRESENT: deferred Extremities exam: PRESENT: +2 edema. ABSENT: calf tenderness, clubbing, pedal edema Neurological exam: PRESENT: altered Psychiatric exam: PRESENT: unusual affect Skin exam: PRESENT: dry, intact, warm. ABSENT: cyanosis, rash Results Laboratory Results: 07/13/17 03:40 Urine Color VANNA Urine Appearance CLOUDY Urine pH 5.0 Ur Specific [place] 1.010 Urine Protein NEGATIVE Urine Glucose (UA) NEGATIVE Urine Ketones NEGATIVE Urine Blood LARGE H Urine Nitrite NEGATIVE Ur Leukocyte Esterase LARGE H Urine WBC (Auto) >182 Urine RBC (Auto) 9 Impressions: Chest X-Ray 07/12/17 23:32 IMPRESSION: No significant interval change. Small lung volumes and small bibasilar opacities. Assessment & Plan - Diagnosis (1) Hepatorenal syndrome Is this a current diagnosis for this admission?: Yes Plan: Unclear baseline given limited history, No evidence for infection, concern for intravascular depletion he receive an IV fluid challenge with albumin and renal dose dopamine. (2) Encephalopathy Is this a current diagnosis for this admission?: Yes Plan: Hepatic encephalopathy lactulose p.o. and TX unable to place NG tube given risk of varices. (3) Acute kidney injury superimposed on chronic kidney disease Is this a current diagnosis for this admission?: Yes Plan: Hepatorenal syndrome, concern for intravascular depletion he will receive an IV fluid challenge with albumin and renal dose dopamine. (4) Hyperammonemia Is this a current diagnosis for this admission?: Yes Plan: Lactulose p.o. and TX (5) Hyperkalemia Is this a current diagnosis for this admission?: Yes Plan: Lactulose p.o. and TX, IV calcium gluconate and albuterol. - Time Time Spent: Greater than 70 Minutes - Inpatient Certification Medical Necessity: Need Close Monitoring Due to Risk of Patient Decompensation
[2017-07-13 06:32] LABS: ARTERIAL BLOOD BASE EXCESS 3.1 mmol/L; ARTERIAL BLOOD O2 SATURATION 93.1 % (94-98)
[2017-07-13] MEDS ORDERED: PROPOFOL 100 ML IV ONE (07:33)
[2017-07-13 07:42] LABS: ABSOLUTE BASOPHILS # (AUTO) 0.1 10^3/uL (0.0-0.2); ABSOLUTE EOSINOPHILS # (AUTO) 0.1 10^3/uL (0.0-0.6); ABSOLUTE LYMPHOCYTES (AUTO) 0.7 10^3/uL (0.5-4.7); ABSOLUTE MONOCYTES (AUTO) 1.1 10^3/uL (0.1-1.4); ABSOLUTE NEUT (AUTO) 7.6 10^3/uL (1.7-8.2); BASOPHILS % (AUTO) 0.5 % (0-2); EOSINOPHILS % (AUTO) 1.2 % (0-6); HEMATOCRIT 39.3 % (37.9-51.0); HEMOGLOBIN 13.1 g/dL (13.5-17.0); LYMPHOCYTES % (AUTO) 7.5 % (13-45); MEAN CORPUSCULAR HEMOGLOBIN 34.3 pg (27.0-33.4); MEAN CORPUSCULAR HGB CONC 33.3 g/dL (32.0-36.0); MEAN CORPUSCULAR VOLUME 103 fl (80-97); MONOCYTES % (AUTO) 11.3 % (3-13); RED BLOOD COUNT 3.81 10^6/uL (4.35-5.55); RED CELL DISTRIBUTION WIDTH 18.1 % (11.5-14.0); SEGMENTED NEUTROPHILS % (AUTO) 79.5 % (42-78); WHITE BLOOD COUNT 9.5 10^3/uL (4.0-10.5)
[2017-07-13 07:54] LABS: ALANINE AMINOTRANSFERASE 44 U/L (21-72); ALBUMIN 2.6 g/dL (3.5-5.0); ALKALINE PHOSPHATASE 167 U/L (38-126); ANION GAP 7 (5-19); ASPARTATE AMINO TRANSFERASE 81 U/L (17-59); BILIRUBIN,DIRECT 2.1 mg/dL (0.0-0.4); BILIRUBIN,TOTAL 3.7 mg/dL (0.2-1.3); BLOOD UREA NITROGEN 76 mg/dL (7-20); CARBON DIOXIDE 30 mmol/L (22-30); CHLORIDE 94 mmol/L (98-107); CREATININE RESULT 1.91 mg/dL (0.52-1.25); GLUCOSE 138 mg/dL (75-110); POTASSIUM 5.8 mmol/L (3.6-5.0); TOTAL PROTEIN 7.4 g/dL (6.3-8.2)
[2017-07-13] MEDS: IPRATROPIUM/ALBUTEROL 0.5-2.5 MG/3 ML AMPUL NEB SCH ×3 (08:09→23:39)
--- NOTE | 2017-07-13 08:29 | RADIOLOGY REPORT (SQ) ---
EXAM DESCRIPTION: CHEST SINGLE VIEW COMPLETED DATE/TIME: 07/13/2017 8:00 am REASON FOR STUDY: check ett placement COMPARISON: 07/12/2017 EXAM PARAMETERS: NUMBER OF VIEWS: One view. TECHNIQUE: Single frontal radiographic view of the chest acquired. RADIATION DOSE: NA LIMITATIONS: Low lung volumes. FINDINGS: LUNGS AND PLEURA: Endotracheal tube is in good position. Tip lies approximately 3.4 cm ab ove the jose angel. NG tube is in place. Catheter tip lies in the left upper quadrant most likely an st omach. There is mild colonic distention. Lung arreguin are hypoventilated. There is atelectasis in t he right base. There is airspace disease in the left retrocardiac region either atelectasis or pneum onia. MEDIASTINUM AND HILAR STRUCTURES: No masses. Contour normal. HEART AND VASCULAR STRUCTURES: Heart normal in size. Normal vasculature. BONES: No acute findings. HARDWARE: None in the chest. OTHER: No other significant finding. IMPRESSION: Endotracheal tube and NG tube are in satisfactory position. There is linear atelectasis in the right midlung field. There is left retrocardiac airspace disease either atelectasis or pneum onia. TECHNICAL DOCUMENTATION: JOB ID: [id number]
--- NOTE | 2017-07-13 08:34 | EKG REPORT ---
SEVERITY:- ABNORMAL ECG - SINUS RHYTHM PROBABLE INFERIOR INFARCT, AGE INDETERMINATE NON PROGRESSION OF R WAVE LAT CHEST LEADS, CONSLDER ANT LAT CT : Confirmed by: Opal Ashley 13-Jul-2017 08:34:00
[2017-07-13 09:01] LABS: ARTERIAL BLOOD BASE EXCESS 4.2 mmol/L; ARTERIAL BLOOD O2 SATURATION 93.1 % (94-98)
--- NOTE | 2017-07-13 09:09 | RADIOLOGY REPORT (SQ) ---
EXAM DESCRIPTION: CHEST SINGLE VIEW COMPLETED DATE/TIME: 07/13/2017 8:50 am REASON FOR STUDY: CENTRAL LINE PLACEMENT COMPARISON: Earlier the same day. NUMBER OF VIEWS: One view. TECHNIQUE: Single frontal radiographic image of the chest acquired. LIMITATIONS: None. FINDINGS: LUNGS AND PLEURA: Stable appearance. MEDIASTINUM AND HILAR STRUCTURES: Stable heart size and mediastinal structures. HEART AND VASCULAR STRUCTURES: Stable appearance. SUPPORT DEVICES: Support lines and tubes remain in place. A right-sided central line has been added. Catheter tip overlies the SVC right atrial junction. BONES: No acute findings. OTHER: No other significant finding. IMPRESSION: Interval placement of a central line which is in good position. No pneumothorax. Endot molly tube and NG tube remain in place. No other interval change. TECHNICAL DOCUMENTATION: JOB ID: [id number] [employer]- All Rights Reserved
[2017-07-13] MEDS: ALBUMIN HUMAN 50 ML IV SCH ×3 (10:01→10:48)
[2017-07-13] MEDS: NORMAL SALINE 1000 ML 1,000 ML IV SCH ×2 (10:03→16:55)
--- NOTE | 2017-07-13 10:07 | OPERATIVE REPORT E ---
Operative Report NAME: SAVITA GOYAL : 1955 AGE: 61Y DATE OF SURGERY: 07/13/2017 ROOM: [facility] PREOPERATIVE DIAGNOSIS: Respiratory failure. POSTOPERATIVE DIAGNOSIS: Respiratory failure. PROCEDURE: 1. Focused ultrasound of the right neck. 2. Ultrasound-directed insertion of triple-lumen central venous access catheter. SURGEON: DARY BRAY M.D. ANESTHESIA: 1% lidocaine plain. COMPLICATIONS: None. ESTIMATED BLOOD LOSS: Scant. DRAINS: None. TISSUE REMOVED: None. SUMMARY OF PROCEDURE: Patient was placed in Trendelenburg position, right neck scanned, variable frequency linear transducer used to identify the right internal jugular vein. Surgical plan and surgical time out were conducted. Under ultrasound guidance, the skin was anesthetized with 1% lidocaine plain. Using Seldinger technique, triple-lumen central venous access catheter was placed into the right internal jugular vein without difficulty. There was excellent blood flow through all 3 lumens. Catheter was flushed with heparinized saline and secured to the skin with 2-0 silk suture, BIOPATCH applied. Sterile dressing applied. Portable upright chest x-ray obtained *------*. DICTATING PHYSICIAN: DARY BRAY M.D. [id number] PHY#: [id number] ID: [id number] JOB#: [id number] ACCT: [id number] cc:DARY BRAY M.D. >
[2017-07-13] MEDS: PROPOFOL 100 ML IV PRN ×3 (10:14→22:58)
--- NOTE | 2017-07-13 12:16 | PDOC PROGRESS REPORT ---
Subjective Progress Note for:: 07/13/17 Subjective:: At the time of my exam the patient was unresponsive and was lacking a gag reflex. We elected to go ahead and intubate and place on the ventilator. This was done for airway control and protection. Physical Exam Vital Signs: Temp Pulse Resp BP Pulse Ox 97.0 F 76 12 114/59 L 98 07/13/17 11:45 07/13/17 10:00 07/13/17 11:45 07/13/17 11:45 07/13/17 12:04 Intake & Output 07/12/17 07/13/17 07/14/17 06:59 06:59 06:59 Output Total 200 425 Balance -200 -425 Weight 144.8 kg General appearance: PRESENT: no acute distress Eye exam: PRESENT: conjunctiva pink. ABSENT: scleral icterus Mouth exam: PRESENT: moist, tongue midline Neck exam: ABSENT: JVD Respiratory exam: PRESENT: clear to auscultation leonard. ABSENT: rales, rhonchi, wheezes Cardiovascular exam: PRESENT: RRR. ABSENT: diastolic murmur, rubs, systolic murmur GI/Abdominal exam: PRESENT: ascites, distended, normal bowel sounds, soft. ABSENT: guarding, mass, organolmegaly, rebound, tenderness Extremities exam: ABSENT: calf tenderness, clubbing, pedal edema Neurological exam: PRESENT: altered. ABSENT: oriented to person, oriented to place, oriented to time, oriented to situation Psychiatric exam: PRESENT: other - Unresponsive Skin exam: PRESENT: dry, intact, warm. ABSENT: cyanosis, rash Results Laboratory Results: 07/13/17 07:28 07/13/17 07:28 07/13/17 07/13/17 07/13/17 03:40 06:20 06:35 WBC Cancelled RBC Cancelled Hgb Cancelled Hct Cancelled MCV Cancelled MCH Cancelled MCHC Cancelled RDW Cancelled Plt Count Cancelled Seg Neutrophils % Cancelled Lymphocytes % Cancelled Monocytes % Cancelled Eosinophils % Cancelled Basophils % Cancelled Absolute Neutrophils Cancelled Absolute Lymphocytes Cancelled Absolute Monocytes Cancelled Absolute Eosinophils Cancelled Absolute Basophils Cancelled Carbonic Acid 2.09 H HCO3/H2CO3 Ratio 15:1 ABG pH 7.28 L ABG pCO2 69.4 H* ABG pO2 76.2 L ABG HCO3 31.8 H ABG O2 Saturation 93.1 L ABG Base Excess 3.1 FiO2 3 LITERS Sodium Potassium Chloride Carbon Dioxide Anion Gap BUN Creatinine Est GFR ( Amer) Est GFR (Non-Af Amer) Glucose Lactic Acid Calcium Total Bilirubin AST ALT Alkaline Phosphatase Total Protein Albumin Urine Color VANNA Urine Appearance CLOUDY Urine pH 5.0 Ur Specific [place] 1.010 Urine Protein NEGATIVE Urine Glucose (UA) NEGATIVE Urine Ketones NEGATIVE Urine Blood LARGE H Urine Nitrite NEGATIVE Ur Leukocyte Esterase LARGE H Urine WBC (Auto) >182 Urine RBC (Auto) 9 07/13/17 07/13/17 07/13/17 06:35 07:28 07:28 WBC 9.5 RBC 3.81 L Hgb 13.1 L Hct 39.3 MCV 103 H MCH 34.3 H MCHC 33.3 RDW 18.1 H Plt Count 134 L Seg Neutrophils % 79.5 H Lymphocytes % 7.5 L Monocytes % 11.3 Eosinophils % 1.2 Basophils % 0.5 Absolute Neutrophils 7.6 Absolute Lymphocytes 0.7 Absolute Monocytes 1.1 Absolute Eosinophils 0.1 Absolute Basophils 0.1 Carbonic Acid HCO3/H2CO3 Ratio ABG pH ABG pCO2 ABG pO2 ABG HCO3 ABG O2 Saturation ABG Base Excess FiO2 Sodium 131.0 L Potassium 5.8 H Chloride 94 L Carbon Dioxide 30 Anion Gap 7 BUN 76 H Creatinine 1.91 H Est GFR ( Amer) 44 L Est GFR (Non-Af Amer) 36 L Glucose 138 H Lactic Acid 2.5 H Calcium 8.0 L Total Bilirubin 3.7 H AST 81 H ALT 44 Alkaline Phosphatase 167 H Total Protein 7.4 Albumin 2.6 L Urine Color Urine Appearance Urine pH Ur Specific [place] Urine Protein Urine Glucose (UA) Urine Ketones Urine Blood Urine Nitrite Ur Leukocyte Esterase Urine WBC (Auto) Urine RBC (Auto) 07/13/17 08:52 WBC RBC Hgb Hct MCV MCH MCHC RDW Plt Count Seg Neutrophils % Lymphocytes % Monocytes % Eosinophils % Basophils % Absolute Neutrophils Absolute Lymphocytes Absolute Monocytes Absolute Eosinophils Absolute Basophils Carbonic Acid 1.37 H HCO3/H2CO3 Ratio 21:1 ABG pH 7.43 ABG pCO2 45.6 H ABG pO2 65.1 L ABG HCO3 29.3 H ABG O2 Saturation 93.1 L ABG Base Excess 4.2 FiO2 40% Sodium Potassium Chloride Carbon Dioxide Anion Gap BUN Creatinine Est GFR ( Amer) Est GFR (Non-Af Amer) Glucose Lactic Acid Calcium Total Bilirubin AST ALT Alkaline Phosphatase Total Protein Albumin Urine Color Urine Appearance Urine pH Ur Specific [place] Urine Protein Urine Glucose (UA) Urine Ketones Urine Blood Urine Nitrite Ur Leukocyte Esterase Urine WBC (Auto) Urine RBC (Auto) Impressions: Chest X-Ray 07/13/17 00:00 IMPRESSION: Interval placement of a central line which is in good position. No pneumothorax. Endotracheal tube and NG tube remain in place. No other interval change. Assessment & Plan - Diagnosis (1) Encephalopathy Is this a current diagnosis for this admission?: Yes Plan: Most likely secondary to hepatic encephalopathy. We will start the patient on lactulose. And also will start on Cipro. Patient was intubated for airway protection. (2) Hepatorenal syndrome Is this a current diagnosis for this admission?: Yes Plan: Patient has an elevated creatinine. He appears to be volume depleted and will continue with the IV fluids. (3) Cirrhosis Is this a current diagnosis for this admission?: Yes (4) Acute kidney injury superimposed on chronic kidney disease Is this a current diagnosis for this admission?: Yes Plan: We will give IV fluids and follow. (5) Hyperkalemia Is this a current diagnosis for this admission?: Yes Plan: Most likely secondary to the acute renal failure. Will give IV fluids and follow. - Time Time Spent with patient: 25-34 minutes - Inpatient Certification Medical Necessity: Need For IV Fluids, Need for IV Antibiotics
[2017-07-13] MEDS ORDERED: PHARMACY COMMUNICATION ORDER MC NR (12:30)
[2017-07-13] MEDS ORDERED: MAGNESIUM HYDROXIDE SUSP 30 ML UDCUP NG PRN ×2 (13:00)
[2017-07-13] MEDS: LACTULOSE SYRUP 20 GM/30 ML UDCUP NG SCH ×2 (13:24→19:32)
[2017-07-13] MEDS: CIPROFLOXACIN 400 MG/D5W RTU 400 MG/200 ML RTUPB IV SCH (21:15)
[2017-07-14] MEDS: LACTULOSE SYRUP 20 GM/30 ML UDCUP NG SCH ×4 (01:21→19:54)
[2017-07-14 06:08] LABS: ALANINE AMINOTRANSFERASE 37 U/L (21-72); ALBUMIN 2.5 g/dL (3.5-5.0); ALKALINE PHOSPHATASE 133 U/L (38-126); ANION GAP 9 (5-19); ASPARTATE AMINO TRANSFERASE 61 U/L (17-59); BILIRUBIN,DIRECT 2.3 mg/dL (0.0-0.4); BILIRUBIN,TOTAL 4.6 mg/dL (0.2-1.3); BLOOD UREA NITROGEN 65 mg/dL (7-20); CALCIUM 8.3 mg/dL (8.4-10.2); CARBON DIOXIDE 28 mmol/L (22-30); CHLORIDE 96 mmol/L (98-107); CREATININE RESULT 1.51 mg/dL (0.52-1.25); GLUCOSE 145 mg/dL (75-110); SODIUM 132.8 mmol/L (137-145); TOTAL PROTEIN 6.4 g/dL (6.3-8.2); TRIGLYCERIDES 71 mg/dL (<150)
[2017-07-14] MEDS: PROPOFOL 100 ML IV PRN ×2 (06:13→17:35)
[2017-07-14 06:30] LABS: ABSOLUTE BASOPHILS # (AUTO) 0.1 10^3/uL (0.0-0.2); ABSOLUTE EOSINOPHILS # (AUTO) 0.1 10^3/uL (0.0-0.6); ABSOLUTE LYMPHOCYTES (AUTO) 0.7 10^3/uL (0.5-4.7); ABSOLUTE MONOCYTES (AUTO) 1.2 10^3/uL (0.1-1.4); ABSOLUTE NEUT (AUTO) 9.1 10^3/uL (1.7-8.2); BASOPHILS % (AUTO) 0.5 % (0-2); EOSINOPHILS % (AUTO) 0.9 % (0-6); HEMATOCRIT 32.9 % (37.9-51.0); HEMOGLOBIN 11.2 g/dL (13.5-17.0); HGB HCT DIFFERENCE 0.7; LYMPHOCYTES % (AUTO) 6.7 % (13-45); MEAN CORPUSCULAR HEMOGLOBIN 34.4 pg (27.0-33.4); MEAN CORPUSCULAR VOLUME 101 fl (80-97); MONOCYTES % (AUTO) 10.6 % (3-13); RED BLOOD COUNT 3.25 10^6/uL (4.35-5.55); RED CELL DISTRIBUTION WIDTH 17.8 % (11.5-14.0); SEGMENTED NEUTROPHILS % (AUTO) 81.3 % (42-78); WHITE BLOOD COUNT 11.1 10^3/uL (4.0-10.5)
--- NOTE | 2017-07-14 08:28 | PDOC PROGRESS REPORT ---
Subjective Progress Note for:: 07/14/17 Subjective:: Pt is intubated and sedated. On vasopressor. No temp spikes, respiratory distress. No nausea, nor vomiting. No diarrhea. Physical Exam Vital Signs: Temp Pulse Resp BP Pulse Ox 98.6 F 94 13 92/56 L 100 07/14/17 07:56 07/14/17 07:56 07/14/17 07:56 07/14/17 07:56 07/14/17 07:56 Intake & Output 07/13/17 07/14/17 07/15/17 06:59 06:59 06:59 Intake Total 3589 Output Total 200 2290 75 Balance -200 1299 -75 Weight 144.8 kg 147.2 kg General appearance: PRESENT: morbidly obese, other - intubated and sedated Head exam: PRESENT: normocephalic Eye exam: PRESENT: conjunctiva pale Mouth exam: PRESENT: neck supple Neck exam: ABSENT: JVD Respiratory exam: PRESENT: decreased breath sounds. ABSENT: rhonchi, wheezes Cardiovascular exam: PRESENT: RRR. ABSENT: gallop GI/Abdominal exam: PRESENT: distended, hypoactive bowel sounds, soft. ABSENT: tenderness Extremities exam: PRESENT: other - anasarca Psychiatric exam: ABSENT: agitated Focused psych exam: ABSENT: restlessness Skin exam: PRESENT: dry, warm, other - multiple ecchymoses on UE. ABSENT: cyanosis Results Laboratory Results: 07/14/17 05:45 07/14/17 05:45 07/13/17 07/14/17 07/14/17 08:52 05:45 05:45 WBC 11.1 H RBC 3.25 L Hgb 11.2 L Hct 32.9 L MCV 101 H MCH 34.4 H MCHC 34.0 RDW 17.8 H Plt Count 91 L Seg Neutrophils % 81.3 H Lymphocytes % 6.7 L Monocytes % 10.6 Eosinophils % 0.9 Basophils % 0.5 Absolute Neutrophils 9.1 H Absolute Lymphocytes 0.7 Absolute Monocytes 1.2 Absolute Eosinophils 0.1 Absolute Basophils 0.1 Carbonic Acid 1.37 H HCO3/H2CO3 Ratio 21:1 ABG pH 7.43 ABG pCO2 45.6 H ABG pO2 65.1 L ABG HCO3 29.3 H ABG O2 Saturation 93.1 L ABG Base Excess 4.2 FiO2 40% Sodium 132.8 L Potassium 5.0 Chloride 96 L Carbon Dioxide 28 Anion Gap 9 BUN 65 H Creatinine 1.51 H Est GFR ( Amer) 57 L Est GFR (Non-Af Amer) 47 L Glucose 145 H Calcium 8.3 L Total Bilirubin 4.6 H AST 61 H ALT 37 Alkaline Phosphatase 133 H Total Protein 6.4 Albumin 2.5 L Triglycerides 71 Impressions: Chest X-Ray 07/13/17 00:00 IMPRESSION: Interval placement of a central line which is in good position. No pneumothorax. Endotracheal tube and NG tube remain in place. No other interval change. Assessment & Plan - Diagnosis (1) Acute hypoxemic respiratory failure Is this a current diagnosis for this admission?: Yes (2) Acute renal failure (ARF) Qualifiers: Acute renal failure type: unspecified Qualified Code(s): N17.9 - Acute kidney failure, unspecified Is this a current diagnosis for this admission?: Yes (3) Hepatorenal syndrome Is this a current diagnosis for this admission?: Yes (4) Anasarca Is this a current diagnosis for this admission?: Yes (5) UTI (urinary tract infection) Qualifiers: Urinary tract infection type: site unspecified Hematuria presence: without hematuria Qualified Code(s): N39.0 - Urinary tract infection, site not specified Is this a current diagnosis for this admission?: Yes (6) Hyperkalemia Is this a current diagnosis for this admission?: Yes (7) Hyponatremia Is this a current diagnosis for this admission?: Yes (8) Coagulopathy Is this a current diagnosis for this admission?: Yes (9) Anemia in chronic illness Is this a current diagnosis for this admission?: Yes (10) COPD (chronic obstructive pulmonary disease) Qualifiers: COPD type: unspecified COPD Qualified Code(s): J44.9 - Chronic obstructive pulmonary disease, unspecified Is this a current diagnosis for this admission?: Yes (11) Essential hypertension Is this a current diagnosis for this admission?: Yes (12) Diabetes mellitus type 2 in obese Is this a current diagnosis for this admission?: Yes (13) Cirrhosis Qualifiers: Hepatic cirrhosis type: unspecified hepatic cirrhosis Ascites presence: with ascites Qualified Code(s): K74.60 - Unspecified cirrhosis of liver Is this a current diagnosis for this admission?: Yes - Time Time Spent with patient: 25-34 minutes - Plan Summary Plan Summary: Add flagyl to ciprofloxacin. Begin tube feedings, monitor electrolytes and creatinine. Follow cultures. We will begin large volume paracentesis when crea stable and BP improves. Continue supportive care. Poor overall prognosis.
[2017-07-14] MEDS: IPRATROPIUM/ALBUTEROL 0.5-2.5 MG/3 ML AMPUL NEB SCH ×2 (08:52→16:11)
[2017-07-14 09:24] LABS: ARTERIAL BLOOD BASE EXCESS 6.1 mmol/L
--- NOTE | 2017-07-14 09:45 | RADIOLOGY REPORT (SQ) ---
EXAM DESCRIPTION: CHEST SINGLE VIEW COMPLETED DATE/TIME: 07/14/2017 8:28 am REASON FOR STUDY: resp failure COMPARISON: 07/13/2017 EXAM PARAMETERS: NUMBER OF VIEWS: One view TECHNIQUE: Single frontal radiograph of the chest. RADIATION DOSE: N/A LIMITATIONS: None. FINDINGS: TEMPORARY SUPPORT DEVICES:ETT in expected location. NG tube courses below the [place]-diaphr agm in to the stomach. Central venous access catheter tip is in expected location. LUNGS AND PLEURA: Low lung volumes. Basilar atelectasis. No effusions. No masses. No pneumothorax. MEDIASTINUM AND HILAR STRUCTURES: No masses. Contour normal. HEART AND VASCULAR STRUCTURES: Heart normal in size. normal vascularity. Aorta normal for age. BONES: No acute findings. OTHER: No other significant finding. IMPRESSION: Low lung volumes with basilar atelectasis. SUPPORT DEVICE(S) IN EXPECTED LOCATIONS. TECHNICAL DOCUMENTATION: JOB ID: [id number] [employer]- All Rights Reserved
[2017-07-14] MEDS: CIPROFLOXACIN 400 MG/D5W RTU 400 MG/200 ML RTUPB IV SCH ×2 (10:11→21:13)
[2017-07-14] MEDS: DOPAMINE HCL 800 MG/D5W 250 ML IV PRN (13:04)
[2017-07-14] MEDS: METRONIDAZOLE 500 MG/NS RTU 100 ML IV SCH ×2 (13:09→17:05)
[2017-07-14] MEDS ORDERED: NORMAL SALINE 1000 ML 1,000 ML IV ONE (19:38)
[2017-07-15] MEDS: LACTULOSE SYRUP 20 GM/30 ML UDCUP NG SCH ×4 (00:01→21:41)
[2017-07-15] MEDS: PROPOFOL 100 ML IV PRN ×4 (00:05→21:43)
[2017-07-15] MEDS: IPRATROPIUM/ALBUTEROL 0.5-2.5 MG/3 ML AMPUL NEB SCH ×4 (02:18→23:56)
[2017-07-15] MEDS: METRONIDAZOLE 500 MG/NS RTU 100 ML IV SCH ×4 (05:27→17:19)
[2017-07-15 05:31] LABS: ABSOLUTE BASOPHILS # (AUTO) 0.1 10^3/uL (0.0-0.2); ABSOLUTE EOSINOPHILS # (AUTO) 0.2 10^3/uL (0.0-0.6); ABSOLUTE LYMPHOCYTES (AUTO) 0.9 10^3/uL (0.5-4.7); ABSOLUTE MONOCYTES (AUTO) 1.2 10^3/uL (0.1-1.4); ABSOLUTE NEUT (AUTO) 9.7 10^3/uL (1.7-8.2); BASOPHILS % (AUTO) 0.9 % (0-2); EOSINOPHILS % (AUTO) 1.4 % (0-6); HEMATOCRIT 36.6 % (37.9-51.0); HEMOGLOBIN 12.3 g/dL (13.5-17.0); HGB HCT DIFFERENCE 0.3; LYMPHOCYTES % (AUTO) 7.3 % (13-45); MEAN CORPUSCULAR HEMOGLOBIN 34.4 pg (27.0-33.4); MEAN CORPUSCULAR HGB CONC 33.7 g/dL (32.0-36.0); MEAN CORPUSCULAR VOLUME 102 fl (80-97); RED BLOOD COUNT 3.58 10^6/uL (4.35-5.55); SEGMENTED NEUTROPHILS % (AUTO) 80.4 % (42-78)
[2017-07-15 05:37] LABS: ANION GAP 8 (5-19); BLOOD UREA NITROGEN 58 mg/dL (7-20); CALCIUM 8.2 mg/dL (8.4-10.2); CARBON DIOXIDE 27 mmol/L (22-30); CHLORIDE 98 mmol/L (98-107); CREATININE RESULT 1.24 mg/dL (0.52-1.25); GLUCOSE 206 mg/dL (75-110); MAGNESIUM 2.8 mg/dL (1.6-2.3); POTASSIUM 4.4 mmol/L (3.6-5.0); SODIUM 132.9 mmol/L (137-145)
[2017-07-15] MEDS: DOPAMINE HCL 800 MG/D5W 250 ML IV PRN ×2 (07:06→22:30)
--- NOTE | 2017-07-15 07:31 | RADIOLOGY REPORT (SQ) ---
EXAM DESCRIPTION: CHEST SINGLE VIEW COMPLETED DATE/TIME: 07/15/2017 6:12 am REASON FOR STUDY: intubated, resp failure COMPARISON: 07/14/2017. EXAM PARAMETERS: NUMBER OF VIEWS: One view. TECHNIQUE: Single frontal radiographic view of the chest acquired. RADIATION DOSE: NA LIMITATIONS: None. FINDINGS: LUNGS AND PLEURA: Small lung volumes. Moderate bandlike opacity of the right lower lung f ield. Pulmonary vascular congestion. Moderate haziness -layered effusion of the left lung base. MEDIASTINUM AND HILAR STRUCTURES: No masses. Contour normal. HEART AND VASCULAR STRUCTURES: Heart normal in size. Normal vasculature. BONES: No acute findings. HARDWARE: Adequate appearing endotracheal tube and likely adequate NG tube obscured distally. Right internal jugular central line tip at the inferior aspect of the right atrium/IVC, below the level of the diaphragms ; consider 9.6 cm retraction. OTHER: No other significant finding. IMPRESSION: No significant interval change.Right IJ line tip probably at the inferior aspect of the right atrium ; consider 9.6 cm retraction. TECHNICAL DOCUMENTATION: JOB ID: [id number]
[2017-07-15 08:28] LABS: ARTERIAL BLOOD BASE EXCESS 6.5 mmol/L; ARTERIAL BLOOD O2 SATURATION 96.8 % (94-98)
[2017-07-15] MEDS ORDERED: SPIRONOLACTONE 25 MG TABLET PO SCH ×2 (09:00→10:00)
--- NOTE | 2017-07-15 09:00 | PDOC PROGRESS REPORT ---
Subjective Progress Note for:: 07/15/17 Subjective:: Pt is intubated and sedated. On vasopressor. No temp spikes, respiratory distress. No nausea, nor vomiting. Reported hematuria yesterday. There is noted coffee-ground material on the nasogastric tube. No drop in hematocrit was noted significantly. Abdomen distended and tight as reported. Physical Exam Vital Signs: Temp Pulse Resp BP Pulse Ox 97.5 F 105 H 12 114/81 99 07/15/17 06:21 07/15/17 08:00 07/14/17 18:41 07/15/17 06:21 07/15/17 06:21 Intake & Output 07/14/17 07/15/17 07/16/17 06:59 06:59 06:59 Intake Total 3589 4079 Output Total 2290 1595 Balance 1299 2484 Weight 147.2 kg 149.7 kg General appearance: PRESENT: no acute distress, morbidly obese, other - Intubated and sedated Head exam: PRESENT: normocephalic Eye exam: PRESENT: conjunctiva pale, EOMI, scleral icterus Mouth exam: PRESENT: moist, neck supple Neck exam: ABSENT: JVD Respiratory exam: PRESENT: decreased breath sounds - Lower lung arreguin, unlabored. ABSENT: rhonchi, wheezes Cardiovascular exam: PRESENT: RRR. ABSENT: gallop GI/Abdominal exam: PRESENT: distended, hypoactive bowel sounds Extremities exam: PRESENT: +2 edema Neurological exam: PRESENT: altered Skin exam: PRESENT: dry, warm. ABSENT: cyanosis Results Laboratory Results: 07/15/17 05:00 07/15/17 05:00 07/14/17 07/15/17 07/15/17 09:09 05:00 05:00 WBC RBC Hgb Hct MCV MCH MCHC RDW Plt Count Seg Neutrophils % Lymphocytes % Monocytes % Eosinophils % Basophils % Absolute Neutrophils Absolute Lymphocytes Absolute Monocytes Absolute Eosinophils Absolute Basophils Carbonic Acid 1.08 HCO3/H2CO3 Ratio 26:1 ABG pH 7.53 H ABG pCO2 35.8 ABG pO2 96.0 ABG HCO3 29.0 H ABG O2 Saturation 98.0 ABG Base Excess 6.1 FiO2 50% Sodium 132.9 L Potassium 4.4 Chloride 98 Carbon Dioxide 27 Anion Gap 8 BUN 58 H Creatinine 1.24 Est GFR ( Amer) > 60 Est GFR (Non-Af Amer) 59 L Glucose 206 H Calcium 8.2 L Magnesium 2.8 H Ammonia 51.1 H 07/15/17 07/15/17 05:00 08:15 WBC 12.0 H RBC 3.58 L Hgb 12.3 L Hct 36.6 L MCV 102 H MCH 34.4 H MCHC 33.7 RDW 18.0 H Plt Count 80 L Seg Neutrophils % 80.4 H Lymphocytes % 7.3 L Monocytes % 10.0 Eosinophils % 1.4 Basophils % 0.9 Absolute Neutrophils 9.7 H Absolute Lymphocytes 0.9 Absolute Monocytes 1.2 Absolute Eosinophils 0.2 Absolute Basophils 0.1 Carbonic Acid 1.09 HCO3/H2CO3 Ratio 26:1 ABG pH 7.53 H ABG pCO2 36.1 ABG pO2 78.9 L ABG HCO3 29.4 H ABG O2 Saturation 96.8 ABG Base Excess 6.5 FiO2 40% Sodium Potassium Chloride Carbon Dioxide Anion Gap BUN Creatinine Est GFR ( Amer) Est GFR (Non-Af Amer) Glucose Calcium Magnesium Ammonia Impressions: Chest X-Ray 07/15/17 06:00 IMPRESSION: No significant interval change.Right IJ line tip probably at the inferior aspect of the right atrium ; consider 9.6 cm retraction. Assessment & Plan - Diagnosis (1) Acute hypoxemic respiratory failure Is this a current diagnosis for this admission?: Yes (2) Acute renal failure (ARF) Qualifiers: Acute renal failure type: unspecified Qualified Code(s): N17.9 - Acute kidney failure, unspecified Is this a current diagnosis for this admission?: Yes (3) Hepatorenal syndrome Is this a current diagnosis for this admission?: Yes (4) Anasarca Is this a current diagnosis for this admission?: Yes (5) UTI (urinary tract infection) Qualifiers: Urinary tract infection type: site unspecified Hematuria presence: without hematuria Qualified Code(s): N39.0 - Urinary tract infection, site not specified Is this a current diagnosis for this admission?: Yes (6) Hyperkalemia Is this a current diagnosis for this admission?: Yes (7) Hyponatremia Is this a current diagnosis for this admission?: Yes (8) Coagulopathy Is this a current diagnosis for this admission?: Yes (9) Anemia in chronic illness Is this a current diagnosis for this admission?: Yes (10) COPD (chronic obstructive pulmonary disease) Qualifiers: COPD type: unspecified COPD Qualified Code(s): J44.9 - Chronic obstructive pulmonary disease, unspecified Is this a current diagnosis for this admission?: Yes (11) Essential hypertension Is this a current diagnosis for this admission?: Yes (12) Diabetes mellitus type 2 in obese Is this a current diagnosis for this admission?: Yes (13) Cirrhosis Qualifiers: Hepatic cirrhosis type: unspecified hepatic cirrhosis Ascites presence: with ascites Qualified Code(s): K74.60 - Unspecified cirrhosis of liver Is this a current diagnosis for this admission?: Yes - Time Time Spent with patient: 25-34 minutes - Plan Summary Plan Summary: We will begin diuretics. Continue current antibiotics and follow cultures. Obtain therapeutic paracentesis. Monitor ammonia level as well as coagulation panel. We will begin intravenous proton pump inhibitor. Continue supportive care for now.
[2017-07-15] MEDS: FUROSEMIDE INJ/PF 40 MG/4 ML SDV IV SCH ×2 (10:28→21:41)
[2017-07-15] MEDS: CIPROFLOXACIN 400 MG/D5W RTU 400 MG/200 ML RTUPB IV SCH ×2 (10:28→21:41)
[2017-07-15] MEDS: PANTOPRAZOLE SODIUM 40 MG VIAL IV SCH ×2 (10:29→21:42)
[2017-07-15 11:26] LABS: PROTHROMBIN TIME 20.8 SEC (11.4-15.4)
[2017-07-15 11:27] LABS: PARTIAL THROMBOPLASTIN TIME 42.2 SEC (23.5-35.8)
[2017-07-15] MEDS ORDERED: NOREPINEPHRINE BITARTRATE INJ/PF 4 MG/4 ML SDV IV ONE (16:00)
[2017-07-15] MEDS ORDERED: ALBUMIN HUMAN 50 ML IV ONE (16:30)
[2017-07-15] MEDS: DEXTROSE 5%-WATER 250 ML with NOREPINEPHRINE BITARTRATE 4 MG IV PRN ×2 (16:31)
[2017-07-15] MEDS: ALBUMIN HUMAN 50 ML IV SCH ×2 (16:32→17:20)
--- NOTE | 2017-07-15 17:40 | RADIOLOGY REPORT (SQ) ---
EXAM DESCRIPTION: U/S ABD PARACENTESIS COMPLETED DATE/TIME: 07/15/2017 4:36 pm REASON FOR STUDY: therapeautic paracentesis/large volume COMPARISON CT abdomen pelvis 05/09/2017 LIMITATIONS: None. PROCEDURE: After obtaining informed consent, the patient was brought to the ultrasound suite. The p rocedure was performed with the patient on a gurney. Ultrasound was used to identify a prominent poc ket of ascites in the right lower quadrant. An appropriate access site was selected. The patient wa s prepped and draped in usual sterile fashion. The access site was anesthetized with 6 mL 1% lidoca ine. A Stor-Y-Dxbfrxdd needle was advanced into the fluid. After aspiration of fluid the needle, th e catheter was advanced off the needle into the fluid. A total of 5,100 mL of clear yellow fluid was removed. The patient tolerated the procedure well left the department in satisfactory condition. IMPRESSION: Successful ultrasound-guided therapeutic paracentesis No laboratory studies on the fluid was ordered by the attending physician COMMENT: Patient medication list reviewed: Yes- Quality ID# [id number]:Eligible professional attests to doc umenting in the medical record they obtained, updated, or reviewed the patient's current medications. Quality ID #[id number]: The patient was prepped and draped using maximum sterile barrier technique including cap, mask, sterile gown, sterile gloves, a large sterile sheet, hand hygiene, and 2% Chlorhexidine fo r cutaneous antisepsis. When ultrasound is used, sterile ultrasound techniques are followed requiring sterile gel and sterile probes. Quality ID #[id number]: Final reports for procedures using fluoroscopy that document radiation exposure esrgio lizbeth, or exposure time and number of fluorographic images (if radiation exposure indices are not avail able) TECHNICAL DOCUMENTATION: JOB ID: [id number] [employer]- All Rights Reserved
[2017-07-16] MEDS: METRONIDAZOLE 500 MG/NS RTU 100 ML IV SCH ×2 (01:42→05:41)
[2017-07-16] MEDS: LACTULOSE SYRUP 20 GM/30 ML UDCUP NG SCH ×4 (02:22→22:24)
[2017-07-16 05:22] LABS: ARTERIAL BLOOD BASE EXCESS 5.7 mmol/L; ARTERIAL BLOOD O2 SATURATION 96.2 % (94-98)
[2017-07-16 05:35] LABS: ABSOLUTE EOSINOPHILS # (AUTO) 0.1 10^3/uL (0.0-0.6); ABSOLUTE LYMPHOCYTES (AUTO) 0.7 10^3/uL (0.5-4.7); ABSOLUTE MONOCYTES (AUTO) 0.9 10^3/uL (0.1-1.4); ABSOLUTE NEUT (AUTO) 8.7 10^3/uL (1.7-8.2); BASOPHILS % (AUTO) 0.5 % (0-2); EOSINOPHILS % (AUTO) 1.2 % (0-6); HEMATOCRIT 35.1 % (37.9-51.0); HEMOGLOBIN 11.8 g/dL (13.5-17.0); HGB HCT DIFFERENCE 0.3; LYMPHOCYTES % (AUTO) 6.5 % (13-45); MEAN CORPUSCULAR HEMOGLOBIN 34.1 pg (27.0-33.4); MEAN CORPUSCULAR HGB CONC 33.5 g/dL (32.0-36.0); MEAN CORPUSCULAR VOLUME 102 fl (80-97); MONOCYTES % (AUTO) 8.5 % (3-13); RED BLOOD COUNT 3.45 10^6/uL (4.35-5.55); RED CELL DISTRIBUTION WIDTH 17.5 % (11.5-14.0); SEGMENTED NEUTROPHILS % (AUTO) 83.3 % (42-78); WHITE BLOOD COUNT 10.5 10^3/uL (4.0-10.5)
[2017-07-16 05:39] LABS: ANION GAP 9 (5-19); BLOOD UREA NITROGEN 50 mg/dL (7-20); CALCIUM 8.2 mg/dL (8.4-10.2); CARBON DIOXIDE 27 mmol/L (22-30); CHLORIDE 99 mmol/L (98-107); CREATININE RESULT 0.97 mg/dL (0.52-1.25); GLUCOSE 206 mg/dL (75-110); MAGNESIUM 2.4 mg/dL (1.6-2.3); SODIUM 135.1 mmol/L (137-145)
[2017-07-16] MEDS: PROPOFOL 100 ML IV PRN ×3 (05:41→22:00)
--- NOTE | 2017-07-16 07:13 | RADIOLOGY REPORT (SQ) ---
EXAM DESCRIPTION: CHEST SINGLE VIEW COMPLETED DATE/TIME: 07/16/2017 6:18 am REASON FOR STUDY: intubated, resp failure COMPARISON: 06/25/2017. EXAM PARAMETERS: NUMBER OF VIEWS: One view. TECHNIQUE: Single frontal radiographic view of the chest acquired. RADIATION DOSE: NA LIMITATIONS: None. FINDINGS: LUNGS AND PLEURA: Small lung volumes. Small a moderate airspace opacities of bilateral lo wer lung arreguin. MEDIASTINUM AND HILAR STRUCTURES: No masses. Contour normal. HEART AND VASCULAR STRUCTURES: Heart normal in size. Normal vasculature. BONES: No acute findings. HARDWARE: Adequate appearing endotracheal tube. Likely adequate NG tube obscured distally. Tip of a right internal jugular central line at the right atrium ; consider 10 cm retraction OTHER: No other significant finding. IMPRESSION: No significant interval change. TECHNICAL DOCUMENTATION: JOB ID: [id number]
[2017-07-16] MEDS: IPRATROPIUM/ALBUTEROL 0.5-2.5 MG/3 ML AMPUL NEB SCH ×3 (08:20→23:50)
[2017-07-16] MEDS ORDERED: FUROSEMIDE INJ/PF 40 MG/4 ML SDV IV SCH (08:30)
--- NOTE | 2017-07-16 08:31 | PDOC PROGRESS REPORT ---
Subjective Progress Note for:: 07/16/17 Subjective:: Pt is intubated and sedated. On dopamine. No temp spikes, respiratory distress. No nausea, nor vomiting. No BM so far and reportedly just had one episode yesterday. There is high residual and therefore tube feedings held. No drop in hematocrit was noted significantly. Abdomen distended and tight as reported and therapeutic paracentesis obtain about 5 L showing some improvement in abdominal distention. Develop hypotension during the procedure requiring Levophed temporarily, albumin infused and blood pressure improved and Levophed is now discontinued. Physical Exam Vital Signs: Temp Pulse Resp BP Pulse Ox 96.4 F L 107 H 12 109/78 98 07/16/17 04:22 07/16/17 07:40 07/16/17 00:00 07/16/17 06:38 07/16/17 06:38 Intake & Output 07/15/17 07/16/17 07/17/17 06:59 06:59 06:59 Intake Total 4079 2611 Output Total 1595 3615 Balance 2484 -1004 Weight 149.7 kg 146.7 kg General appearance: PRESENT: no acute distress, morbidly obese Head exam: PRESENT: normocephalic Eye exam: PRESENT: conjunctiva pale Mouth exam: PRESENT: dry mucosa, neck supple Neck exam: ABSENT: JVD Respiratory exam: PRESENT: rhonchi - Scattered bilateral. ABSENT: wheezes Cardiovascular exam: PRESENT: RRR. ABSENT: gallop GI/Abdominal exam: PRESENT: distended, hypoactive bowel sounds, soft Extremities exam: PRESENT: +2 edema Neurological exam: PRESENT: altered Psychiatric exam: ABSENT: agitated Focused psych exam: ABSENT: restlessness Skin exam: PRESENT: jaundice, other - Anasarca Results Laboratory Results: 07/16/17 05:10 07/16/17 05:10 07/15/17 07/16/17 07/16/17 08:15 05:10 05:10 WBC RBC Hgb Hct MCV MCH MCHC RDW Plt Count Seg Neutrophils % Lymphocytes % Monocytes % Eosinophils % Basophils % Absolute Neutrophils Absolute Lymphocytes Absolute Monocytes Absolute Eosinophils Absolute Basophils Carbonic Acid 1.09 HCO3/H2CO3 Ratio 26:1 ABG pH 7.53 H ABG pCO2 36.1 ABG pO2 78.9 L ABG HCO3 29.4 H ABG O2 Saturation 96.8 ABG Base Excess 6.5 FiO2 40% Sodium 135.1 L Potassium 4.0 Chloride 99 Carbon Dioxide 27 Anion Gap 9 BUN 50 H Creatinine 0.97 Est GFR ( Amer) > 60 Est GFR (Non-Af Amer) > 60 Glucose 206 H Calcium 8.2 L Magnesium 2.4 H Ammonia 28.4 07/16/17 07/16/17 05:10 05:10 WBC 10.5 RBC 3.45 L Hgb 11.8 L Hct 35.1 L MCV 102 H MCH 34.1 H MCHC 33.5 RDW 17.5 H Plt Count 58 L Seg Neutrophils % 83.3 H Lymphocytes % 6.5 L Monocytes % 8.5 Eosinophils % 1.2 Basophils % 0.5 Absolute Neutrophils 8.7 H Absolute Lymphocytes 0.7 Absolute Monocytes 0.9 Absolute Eosinophils 0.1 Absolute Basophils 0.0 Carbonic Acid 1.04 L HCO3/H2CO3 Ratio 27:1 ABG pH 7.53 H ABG pCO2 34.7 L ABG pO2 73.2 L ABG HCO3 28.3 H ABG O2 Saturation 96.2 ABG Base Excess 5.7 FiO2 30% Sodium Potassium Chloride Carbon Dioxide Anion Gap BUN Creatinine Est GFR ( Amer) Est GFR (Non-Af Amer) Glucose Calcium Magnesium Ammonia 07/13/17 03:40 Catheterized Urine Urine Culture - Final Klebsiella Pneumoniae Pseudomonas Aeruginosa Impressions: Paracentesis Ultrasound 07/15/17 08:54 IMPRESSION: Successful ultrasound-guided therapeutic paracentesis No laboratory studies on the fluid was ordered by the attending physician Chest X-Ray 07/16/17 06:00 IMPRESSION: No significant interval change. Assessment & Plan - Diagnosis (1) Acute hypoxemic respiratory failure Is this a current diagnosis for this admission?: Yes (2) Acute renal failure (ARF) Qualifiers: Acute renal failure type: unspecified Qualified Code(s): N17.9 - Acute kidney failure, unspecified Is this a current diagnosis for this admission?: Yes (3) Hepatorenal syndrome Is this a current diagnosis for this admission?: Yes (4) Anasarca Is this a current diagnosis for this admission?: Yes (5) UTI (urinary tract infection) Qualifiers: Urinary tract infection type: site unspecified Hematuria presence: without hematuria Qualified Code(s): N39.0 - Urinary tract infection, site not specified Is this a current diagnosis for this admission?: Yes (6) Hyperkalemia Is this a current diagnosis for this admission?: Yes (7) Hyponatremia Is this a current diagnosis for this admission?: Yes (8) Coagulopathy Is this a current diagnosis for this admission?: Yes (9) Anemia in chronic illness Is this a current diagnosis for this admission?: Yes (10) COPD (chronic obstructive pulmonary disease) Qualifiers: COPD type: unspecified COPD Qualified Code(s): J44.9 - Chronic obstructive pulmonary disease, unspecified Is this a current diagnosis for this admission?: Yes (11) Essential hypertension Is this a current diagnosis for this admission?: Yes (12) Diabetes mellitus type 2 in obese Is this a current diagnosis for this admission?: Yes (13) Cirrhosis Qualifiers: Hepatic cirrhosis type: unspecified hepatic cirrhosis Ascites presence: with ascites Qualified Code(s): K74.60 - Unspecified cirrhosis of liver Is this a current diagnosis for this admission?: Yes - Time Time Spent with patient: 25-34 minutes - Plan Summary Plan Summary: We will try to do weaning of ventilator today. In the meantime I will increase the diuretics, change antibiotic to antipseudomonal, try Dulcolax and give Reglan. Continue supportive care. We will try to discuss with family regarding patient's overall condition and prognosis.
[2017-07-16] MEDS ORDERED: PIPERACILLIN/TAZOBACTAM 3.375 GM VIAL IV SCH (08:45)
[2017-07-16] MEDS ORDERED: FUROSEMIDE INJ/PF 100 MG/10 ML SDV IV ONE (08:45)
[2017-07-16] MEDS ORDERED: BISACODYL 10 MG SUPP.RECT PR ONE (09:00)
[2017-07-16] MEDS: PANTOPRAZOLE SODIUM 40 MG VIAL IV SCH ×2 (09:22→22:01)
[2017-07-16] MEDS: PIPERACILLIN SODIUM/TAZOBACTAM 3.375 GM in NORMAL SALINE 100 ML IV SCH ×2 (09:23→17:23)
[2017-07-16] MEDS: SPIRONOLACTONE 25 MG TABLET NG SCH (09:24)
--- NOTE | 2017-07-16 11:36 | RADIOLOGY REPORT (SQ) ---
EXAM DESCRIPTION: CHEST SINGLE VIEW COMPLETED DATE/TIME: 07/16/2017 11:25 am REASON FOR STUDY: central line placement adjustment COMPARISON: CT abdomen pelvis 05/09/2017 Chest films 05/23/2017, 07/12/2017, 07/15/2017, 07/16/2017 EXAM PARAMETERS: NUMBER OF VIEWS: One view. TECHNIQUE: Single frontal radiographic view of the chest acquired. RADIATION DOSE: NA LIMITATIONS: None. FINDINGS: An endotracheal tube is present with the tip 5 cm above the jose angel, at the level of the clavicular heads. The right central line has been pulled back about 4 cm, the tip is still in the right atrium. Nasogastric tube tip and side-port in stomach. LUNGS AND PLEURA: Very low lung volumes. Air bronchograms in the left retrocardiac region from atele ctasis or pneumonia similar compared to 07/16/2017 and 07/15/2017. Stable bandlike atelectasis in the right lower perihilar region, and medial right lung base. No pneumothorax. No pleural effusions. MEDIASTINUM AND HILAR STRUCTURES: No masses. Contour normal. HEART AND VASCULAR STRUCTURES: Stable moderate cardiomegaly BONES: Degenerative changes thoracic spine HARDWARE: As above OTHER: No other significant finding. IMPRESSION: Right jugular central line has been pulled back with the tip still in the right atrium. Airspace disease in the right perihilar lung and bilateral lower lobes. TECHNICAL DOCUMENTATION: JOB ID: [id number]
[2017-07-16] MEDS: FUROSEMIDE INJ/PF 100 MG/10 ML SDV IV SCH ×2 (15:09→22:01)
[2017-07-16] MEDS: DOPAMINE HCL 800 MG/D5W 250 ML IV PRN (17:24)
[2017-07-17] MEDS: LACTULOSE SYRUP 20 GM/30 ML UDCUP NG SCH ×5 (01:33→21:07)
[2017-07-17] MEDS: PIPERACILLIN SODIUM/TAZOBACTAM 3.375 GM in NORMAL SALINE 100 ML IV SCH ×3 (01:33→18:46)
[2017-07-17] MEDS: DEXTROSE 5%-WATER 250 ML with NOREPINEPHRINE BITARTRATE 4 MG IV PRN ×8 (01:33→20:41)
[2017-07-17] MEDS ORDERED: NOREPINEPHRINE BITARTRATE INJ/PF 4 MG/4 ML SDV IV ONE (01:34)
[2017-07-17 04:55] LABS: ARTERIAL BLOOD BASE EXCESS 7.6 mmol/L; ARTERIAL BLOOD O2 SATURATION 94.2 % (94-98)
[2017-07-17 05:02] LABS: HEMOGLOBIN 12.4 g/dL (13.5-17.0); HGB HCT DIFFERENCE 0.2; MEAN CORPUSCULAR HEMOGLOBIN 33.5 pg (27.0-33.4); MEAN CORPUSCULAR HGB CONC 33.4 g/dL (32.0-36.0); MEAN CORPUSCULAR VOLUME 100 fl (80-97); RED CELL DISTRIBUTION WIDTH 17.5 % (11.5-14.0)
[2017-07-17 05:07] LABS: ANION GAP 9 (5-19); BLOOD UREA NITROGEN 50 mg/dL (7-20); CALCIUM 8.2 mg/dL (8.4-10.2); CARBON DIOXIDE 27 mmol/L (22-30); CHLORIDE 100 mmol/L (98-107); CREATININE RESULT 1.14 mg/dL (0.52-1.25); GLUCOSE 206 mg/dL (75-110); MAGNESIUM 2.3 mg/dL (1.6-2.3); TRIGLYCERIDES 59 mg/dL (<150)
[2017-07-17] MEDS: FUROSEMIDE INJ/PF 100 MG/10 ML SDV IV SCH ×3 (05:12→21:07)
[2017-07-17] MEDS: IPRATROPIUM/ALBUTEROL 0.5-2.5 MG/3 ML AMPUL NEB SCH ×2 (08:19→16:03)
--- NOTE | 2017-07-17 08:36 | PDOC PROGRESS REPORT ---
Subjective Progress Note for:: 07/17/17 Subjective:: Patient yesterday doing well tolerating weaning however last night started to develop hypotension and his back on levofed on top of dopamine. He was also noted to have a decrease in urine output but creatinine remains stable. No temperature spikes but WBC noted to trend up. Had good bowel movement from the Dulcolax suppository which is significant according to the staff. No respiratory distress, nausea or vomiting, still having high residuals. Physical Exam Vital Signs: Temp Pulse Resp BP Pulse Ox 98.4 F 95 12 94/61 L 97 07/17/17 08:09 07/17/17 07:47 07/17/17 07:47 07/17/17 08:09 07/17/17 08:09 Intake & Output 07/16/17 07/17/17 07/18/17 06:59 06:59 06:59 Intake Total 2611 769 Output Total 3615 1845 0 Balance -1004 -1076 0 Weight 146.7 kg 140.2 kg General appearance: PRESENT: no acute distress, other - Intubated and sedated Head exam: PRESENT: normocephalic Eye exam: PRESENT: EOMI Mouth exam: PRESENT: dry mucosa, neck supple Neck exam: ABSENT: JVD Respiratory exam: PRESENT: rhonchi - Occasional bilateral, unlabored. ABSENT: wheezes Cardiovascular exam: PRESENT: RRR. ABSENT: gallop GI/Abdominal exam: PRESENT: distended - Less, hypoactive bowel sounds, soft Extremities exam: PRESENT: +2 edema Neurological exam: PRESENT: altered Psychiatric exam: ABSENT: agitated Focused psych exam: ABSENT: restlessness Skin exam: PRESENT: dry, jaundice, warm, other - Anasarca. ABSENT: cyanosis Results Laboratory Results: 07/17/17 04:46 07/17/17 04:46 07/17/17 07/17/17 07/17/17 04:46 04:46 04:46 WBC 17.0 H RBC 3.70 L Hgb 12.4 L Hct 37.0 L MCV 100 H MCH 33.5 H MCHC 33.4 RDW 17.5 H Plt Count 101 L Carbonic Acid 1.13 HCO3/H2CO3 Ratio 27:1 ABG pH 7.53 H ABG pCO2 37.4 ABG pO2 62.2 L ABG HCO3 30.6 H ABG O2 Saturation 94.2 ABG Base Excess 7.6 FiO2 30% Sodium 136.0 L Potassium 4.0 Chloride 100 Carbon Dioxide 27 Anion Gap 9 BUN 50 H Creatinine 1.14 Est GFR ( Amer) > 60 Est GFR (Non-Af Amer) > 60 Glucose 206 H Calcium 8.2 L Magnesium 2.3 Triglycerides 59 07/13/17 03:40 Catheterized Urine Urine Culture - Final Klebsiella Pneumoniae Pseudomonas Aeruginosa Impressions: Paracentesis Ultrasound 07/15/17 08:54 IMPRESSION: Successful ultrasound-guided therapeutic paracentesis No laboratory studies on the fluid was ordered by the attending physician Assessment & Plan - Diagnosis (1) Acute hypoxemic respiratory failure Is this a current diagnosis for this admission?: Yes (2) Acute renal failure (ARF) Qualifiers: Acute renal failure type: unspecified Qualified Code(s): N17.9 - Acute kidney failure, unspecified Is this a current diagnosis for this admission?: Yes (3) Hepatorenal syndrome Is this a current diagnosis for this admission?: Yes (4) Anasarca Is this a current diagnosis for this admission?: Yes (5) UTI (urinary tract infection) Qualifiers: Urinary tract infection type: site unspecified Hematuria presence: without hematuria Qualified Code(s): N39.0 - Urinary tract infection, site not specified Is this a current diagnosis for this admission?: Yes (6) Hyperkalemia Is this a current diagnosis for this admission?: Yes (7) Hyponatremia Is this a current diagnosis for this admission?: Yes (8) Coagulopathy Is this a current diagnosis for this admission?: Yes (9) Anemia in chronic illness Is this a current diagnosis for this admission?: Yes (10) COPD (chronic obstructive pulmonary disease) Qualifiers: COPD type: unspecified COPD Qualified Code(s): J44.9 - Chronic obstructive pulmonary disease, unspecified Is this a current diagnosis for this admission?: Yes (11) Essential hypertension Is this a current diagnosis for this admission?: Yes (12) Diabetes mellitus type 2 in obese Is this a current diagnosis for this admission?: Yes (13) Cirrhosis Qualifiers: Hepatic cirrhosis type: unspecified hepatic cirrhosis Ascites presence: with ascites Qualified Code(s): K74.60 - Unspecified cirrhosis of liver Is this a current diagnosis for this admission?: Yes - Time Time Spent with patient: 25-34 minutes - Plan Summary Plan Summary: Continue vasopressors. We will add ciprofloxacin for double coverage for Pseudomonas. In the meantime we will give a bolus of 500 mL of saline, continue diuretics for now. Total urine output seems to be good so far. We will continue to monitor. We will try Reglan and see if residuals will improve. Continue supportive care at this time. We will hold weaning for now.
[2017-07-17] MEDS: METOCLOPRAMIDE HCL INJ/PF 10 MG/2 ML SDV IV SCH ×3 (08:43→21:07)
--- NOTE | 2017-07-17 08:43 | RADIOLOGY REPORT (SQ) ---
EXAM DESCRIPTION: CHEST SINGLE VIEW COMPLETED DATE/TIME: 07/17/2017 6:07 am REASON FOR STUDY: intubated, resp failure COMPARISON: 07/16/2017 NUMBER OF VIEWS: One view. TECHNIQUE: Single frontal radiographic image of the chest acquired. LIMITATIONS: Expiration. Body habitus. FINDINGS: LUNGS AND PLEURA: Improved aeration left lung residual segmental airspace disease. Persis tent right perihilar airspace disease. No pneumothorax MEDIASTINUM AND HEART: Stable heart size and mediastinal structures. SUPPORT DEVICES: Appropriate location without change. BONY STRUCTURES: No acute findings. HARDWARE: None. OTHER: No other significant finding. IMPRESSION: Improved aeration left lung. No pneumothorax.
[2017-07-17] MEDS ORDERED: NORMAL SALINE 1000 ML 500 ML IV ONE (09:00)
[2017-07-17] MEDS: CIPROFLOXACIN 400 MG/D5W RTU 400 MG/200 ML RTUPB IV SCH ×2 (09:15→21:08)
[2017-07-17] MEDS: PANTOPRAZOLE SODIUM 40 MG VIAL IV SCH ×2 (09:16→21:07)
[2017-07-17] MEDS: SPIRONOLACTONE 25 MG TABLET NG SCH (09:16)
[2017-07-17] MEDS: PROPOFOL 100 ML IV PRN ×2 (10:21→16:09)
[2017-07-17] MEDS: DOPAMINE HCL 800 MG/D5W 250 ML IV PRN (16:04)
[2017-07-17] MEDS ORDERED: NORMAL SALINE 500 ML IV ONE (16:30)
[2017-07-18] MEDS: IPRATROPIUM/ALBUTEROL 0.5-2.5 MG/3 ML AMPUL NEB SCH ×3 (00:10→15:24)
[2017-07-18] MEDS: METOCLOPRAMIDE HCL INJ/PF 10 MG/2 ML SDV IV SCH ×4 (02:34→21:30)
[2017-07-18] MEDS: PIPERACILLIN SODIUM/TAZOBACTAM 3.375 GM in NORMAL SALINE 100 ML IV SCH ×3 (02:34→17:16)
[2017-07-18] MEDS: DEXTROSE 5%-WATER 250 ML with NOREPINEPHRINE BITARTRATE 4 MG IV PRN ×6 (03:00→15:45)
[2017-07-18 05:04] LABS: ARTERIAL BLOOD BASE EXCESS 1.6 mmol/L; ARTERIAL BLOOD O2 SATURATION 94.9 % (94-98)
[2017-07-18 05:05] LABS: HEMATOCRIT 36.6 % (37.9-51.0); HEMOGLOBIN 12.3 g/dL (13.5-17.0); HGB HCT DIFFERENCE 0.3; MEAN CORPUSCULAR HGB CONC 33.6 g/dL (32.0-36.0); MEAN CORPUSCULAR VOLUME 101 fl (80-97); RED BLOOD COUNT 3.62 10^6/uL (4.35-5.55); RED CELL DISTRIBUTION WIDTH 18.1 % (11.5-14.0); WHITE BLOOD COUNT 17.2 10^3/uL (4.0-10.5)
[2017-07-18 05:22] LABS: ANION GAP 13 (5-19); BLOOD UREA NITROGEN 54 mg/dL (7-20); CALCIUM 8.1 mg/dL (8.4-10.2); CARBON DIOXIDE 23 mmol/L (22-30); CHLORIDE 99 mmol/L (98-107); CREATININE RESULT 1.56 mg/dL (0.52-1.25); GLUCOSE 252 mg/dL (75-110); MAGNESIUM 2.4 mg/dL (1.6-2.3); SODIUM 135.1 mmol/L (137-145)
[2017-07-18] MEDS: FUROSEMIDE INJ/PF 100 MG/10 ML SDV IV SCH ×2 (05:38→09:28)
[2017-07-18] MEDS: PROPOFOL 100 ML IV PRN (05:42)
--- NOTE | 2017-07-18 07:30 | RADIOLOGY REPORT (SQ) ---
EXAM DESCRIPTION: CHEST SINGLE VIEW COMPLETED DATE/TIME: 07/18/2017 6:58 am REASON FOR STUDY: respiratory failure COMPARISON: 07/17/2017. EXAM PARAMETERS: NUMBER OF VIEWS: One view. TECHNIQUE: Single frontal radiographic view of the chest acquired. RADIATION DOSE: NA LIMITATIONS: None. FINDINGS: LUNGS AND PLEURA: Worsened small lung volumes. Moderate airspace opacity in streakiness of the left lower lung field, 50%. Small obscuration -effusion of the right costophrenic angle. No nspecific hyperlucency of the right lower lung. MEDIASTINUM AND HILAR STRUCTURES: No masses. Contour normal. HEART AND VASCULAR STRUCTURES: Heart normal in size. Normal vasculature. BONES: No acute findings. HARDWARE: Endotracheal tube tip at the thoracic inlet ; consider 2 cm advancement/repositioning. Tip of an NG tube courses to the left paracentral abdomen, partially obscured. Right internal jugular c entral line tip at the inferior right atrium ; consider 11 cm retraction. OTHER: No other significant finding. IMPRESSION: Small lung volumes worsened.Endotracheal tube tip at the thoracic inlet ; consider 2 cm advancement/repositioning. Tip of an NG tube courses to the left paracentral abdomen, partially obsc ured; consider additional imaging or retraction. Right internal jugular central line tip at the infe rior right atrium ; consider 11 cm retraction. COMMENT: This report was called to ICU Nurse Trista Laurent at07:19 on 07/18/2017. TECHNICAL DOCUMENTATION: JOB ID: [id number]
[2017-07-18] MEDS ORDERED: NORMAL SALINE 1000 ML 1,000 ML IV PRN (07:52)
--- NOTE | 2017-07-18 08:04 | PDOC PROGRESS REPORT ---
Subjective Progress Note for:: 07/18/17 Subjective:: Patient still showing high residuals despite Reglan. Not tolerating tube feedings. Urine output less than 300/24 hours. Creatinine increased today. Patient remained on Levophed and dopamine. No reported temperature spikes or respiratory distress. Patient had loose stools yesterday with lactulose and the dose was decreased. Physical Exam Vital Signs: Temp Pulse Resp BP Pulse Ox 97.7 F 92 12 93/60 L 96 07/18/17 06:11 07/18/17 00:10 07/18/17 06:11 07/18/17 06:11 07/18/17 06:11 Intake & Output 07/17/17 07/18/17 07/19/17 06:59 06:59 06:59 Intake Total 769 3406 Output Total 1845 236 Balance -1076 3170 Weight 140.2 kg 144.1 kg General appearance: PRESENT: no acute distress, morbidly obese, other - Intubated and sedated Head exam: PRESENT: normocephalic Eye exam: PRESENT: conjunctiva pale, scleral icterus Mouth exam: PRESENT: neck supple Neck exam: ABSENT: JVD Respiratory exam: PRESENT: clear to auscultation leonard, decreased breath sounds - Basis and lower lung arreguin Cardiovascular exam: PRESENT: RRR GI/Abdominal exam: PRESENT: distended, hypoactive bowel sounds Extremities exam: PRESENT: +2 edema, other - Anasarca Neurological exam: PRESENT: altered Psychiatric exam: ABSENT: agitated Focused psych exam: ABSENT: restlessness Skin exam: PRESENT: dry, warm. ABSENT: cyanosis Results Laboratory Results: 07/18/17 04:50 07/18/17 04:50 07/18/17 07/18/17 07/18/17 04:45 04:50 04:50 WBC RBC Hgb Hct MCV MCH MCHC RDW Plt Count Carbonic Acid 1.09 HCO3/H2CO3 Ratio 23:1 ABG pH 7.46 H ABG pCO2 36.3 ABG pO2 69.9 L ABG HCO3 25.2 ABG O2 Saturation 94.9 ABG Base Excess 1.6 FiO2 30% Sodium 135.1 L Potassium 4.0 Chloride 99 Carbon Dioxide 23 Anion Gap 13 BUN 54 H Creatinine 1.56 H Est GFR ( Amer) 55 L Est GFR (Non-Af Amer) 45 L Glucose 252 H Calcium 8.1 L Magnesium 2.4 H Ammonia 31.2 07/18/17 04:50 WBC 17.2 H RBC 3.62 L Hgb 12.3 L Hct 36.6 L MCV 101 H MCH 34.0 H MCHC 33.6 RDW 18.1 H Plt Count 110 L Carbonic Acid HCO3/H2CO3 Ratio ABG pH ABG pCO2 ABG pO2 ABG HCO3 ABG O2 Saturation ABG Base Excess FiO2 Sodium Potassium Chloride Carbon Dioxide Anion Gap BUN Creatinine Est GFR ( Amer) Est GFR (Non-Af Amer) Glucose Calcium Magnesium Ammonia Impressions: Paracentesis Ultrasound 07/15/17 08:54 IMPRESSION: Successful ultrasound-guided therapeutic paracentesis No laboratory studies on the fluid was ordered by the attending physician Chest X-Ray 07/18/17 06:00 IMPRESSION: Small lung volumes worsened.Endotracheal tube tip at the thoracic inlet ; consider 2 cm advancement/repositioning. Tip of an NG tube courses to the left paracentral abdomen, partially obscured; consider additional imaging or retraction. Right internal jugular central line tip at the inferior right atrium ; consider 11 cm retraction. Assessment & Plan - Diagnosis (1) Acute hypoxemic respiratory failure Is this a current diagnosis for this admission?: Yes (2) Acute renal failure (ARF) Qualifiers: Acute renal failure type: unspecified Qualified Code(s): N17.9 - Acute kidney failure, unspecified Is this a current diagnosis for this admission?: Yes (3) Hepatorenal syndrome Is this a current diagnosis for this admission?: Yes (4) Anasarca Is this a current diagnosis for this admission?: Yes (5) UTI (urinary tract infection) Qualifiers: Urinary tract infection type: site unspecified Hematuria presence: without hematuria Qualified Code(s): N39.0 - Urinary tract infection, site not specified Is this a current diagnosis for this admission?: Yes (6) Hyperkalemia Is this a current diagnosis for this admission?: Yes (7) Hyponatremia Is this a current diagnosis for this admission?: Yes (8) Coagulopathy Is this a current diagnosis for this admission?: Yes (9) Anemia in chronic illness Is this a current diagnosis for this admission?: Yes (10) COPD (chronic obstructive pulmonary disease) Qualifiers: COPD type: unspecified COPD Qualified Code(s): J44.9 - Chronic obstructive pulmonary disease, unspecified Is this a current diagnosis for this admission?: Yes (11) Essential hypertension Is this a current diagnosis for this admission?: Yes (12) Diabetes mellitus type 2 in obese Is this a current diagnosis for this admission?: Yes (13) Cirrhosis Qualifiers: Hepatic cirrhosis type: unspecified hepatic cirrhosis Ascites presence: with ascites Qualified Code(s): K74.60 - Unspecified cirrhosis of liver Is this a current diagnosis for this admission?: Yes - Time Time Spent with patient: 25-34 minutes - Plan Summary Plan Summary: We will hold the tube feedings and begin TPN we will decrease diuretics and begin intravenous fluid hydration. We will give albumin. Continue current antibiotics. Monitor electrolytes continue supportive care. I have discussed care with the family regarding worsening condition. Patient had prior living will and son and daughter has power of erisa attorney for him. He is a full code according to the family.
[2017-07-18 09:15] LABS: ALANINE AMINOTRANSFERASE 28 U/L (21-72); ALBUMIN 2.2 g/dL (3.5-5.0); ALKALINE PHOSPHATASE 120 U/L (38-126); ASPARTATE AMINO TRANSFERASE 40 U/L (17-59); BILIRUBIN,TOTAL 8.9 mg/dL (0.2-1.3); TOTAL PROTEIN 5.6 g/dL (6.3-8.2)
[2017-07-18] MEDS: ALBUMIN HUMAN 50 ML IV SCH ×2 (09:15→09:39)
[2017-07-18] MEDS: LACTULOSE SYRUP 20 GM/30 ML UDCUP NG SCH ×2 (09:28→21:30)
[2017-07-18] MEDS: CIPROFLOXACIN 400 MG/D5W RTU 400 MG/200 ML RTUPB IV SCH ×2 (09:28→21:30)
[2017-07-18] MEDS: SPIRONOLACTONE 25 MG TABLET NG SCH (09:30)
[2017-07-18] MEDS ORDERED: DEXTROSE 40% GEL 15 GM TUBE X 2 PO PRN (13:08)
[2017-07-18] MEDS ORDERED: DEXTROSE 50%-WATER SYRINGE 12.5 GM/25 ML DOSE IV PRN (13:08)
[2017-07-18] MEDS ORDERED: GLUCAGON,HUMAN RECOMB 1 MG INJ IM PRN (13:08)
[2017-07-18] MEDS ORDERED: DEXTROSE 40% GEL 15 GM TUBE PO PRN (13:08)
[2017-07-18] MEDS ORDERED: AMINO ACIDS 5%/D25W 1,000 ML IV PRN (13:08)
[2017-07-18] MEDS ORDERED: DEXTROSE 50%-WATER SYRINGE 25 GM/50 ML DOSE IV PRN (13:08)
[2017-07-18] MEDS ORDERED: DEXTROSE 10%-WATER 1,000 ML IV PRN (13:08)
[2017-07-18] MEDS: DOPAMINE HCL 800 MG/D5W 250 ML IV PRN (15:41)
[2017-07-18] MEDS ORDERED: OCTREOTIDE ACETATE INJ/PF 100 MCG/1 ML SDV SUBCUT ONE (16:30)
[2017-07-18] MEDS ORDERED: OCTREOTIDE ACETATE INJ/PF 100 MCG/1 ML SDV ONE (17:02)
[2017-07-18] MEDS: INSULIN REG, HUMAN 100 UNIT/ML 3 ML VIAL (PYX) SUBCUT PRN (18:32)
[2017-07-18] MEDS: OCTREOTIDE ACETATE INJ/PF 100 MCG/1 ML SDV SUBCUT SCH (21:29)
[2017-07-18] MEDS ORDERED: OCTREOTIDE ACETATE INJ/PF 100 MCG/1 ML SDV SUBCUT SCH (22:00)
[2017-07-19] MEDS: INSULIN REG, HUMAN 100 UNIT/ML 3 ML VIAL (PYX) SUBCUT PRN ×2 (00:05→06:40)
[2017-07-19] MEDS: IPRATROPIUM/ALBUTEROL 0.5-2.5 MG/3 ML AMPUL NEB SCH ×2 (00:35→08:08)
[2017-07-19] MEDS: PIPERACILLIN SODIUM/TAZOBACTAM 3.375 GM in NORMAL SALINE 100 ML IV SCH ×2 (02:55→09:43)
[2017-07-19] MEDS: METOCLOPRAMIDE HCL INJ/PF 10 MG/2 ML SDV IV SCH ×2 (02:55→09:40)
[2017-07-19] MEDS: DEXTROSE 5%-WATER 250 ML with NOREPINEPHRINE BITARTRATE 4 MG IV PRN ×4 (04:30→12:04)
[2017-07-19 05:52] LABS: ARTERIAL BLOOD BASE EXCESS 0.4 mmol/L; ARTERIAL BLOOD O2 SATURATION 94.6 % (94-98)
[2017-07-19] MEDS: OCTREOTIDE ACETATE INJ/PF 100 MCG/1 ML SDV SUBCUT SCH (06:01)
[2017-07-19 06:04] LABS: ALANINE AMINOTRANSFERASE 26 U/L (21-72); ALBUMIN 2.1 g/dL (3.5-5.0); ALKALINE PHOSPHATASE 83 U/L (38-126); ANION GAP 9 (5-19); ASPARTATE AMINO TRANSFERASE 37 U/L (17-59); BILIRUBIN,DIRECT 5.1 mg/dL (0.0-0.4); BILIRUBIN,TOTAL 8.1 mg/dL (0.2-1.3); BLOOD UREA NITROGEN 55 mg/dL (7-20); CALCIUM 8.1 mg/dL (8.4-10.2); CARBON DIOXIDE 25 mmol/L (22-30); CHLORIDE 100 mmol/L (98-107); CREATININE RESULT 1.69 mg/dL (0.52-1.25); GLUCOSE 305 mg/dL (75-110); PHOSPHORUS 3.7 mg/dL (2.5-4.5); POTASSIUM 3.7 mmol/L (3.6-5.0); SODIUM 133.7 mmol/L (137-145); TOTAL PROTEIN 5.6 g/dL (6.3-8.2)
[2017-07-19 06:12] LABS: PREALBUMIN 3.1 mg/dL (17.6-36.0)
[2017-07-19 06:18] LABS: HEMATOCRIT 31.8 % (37.9-51.0); HEMOGLOBIN 10.7 g/dL (13.5-17.0); HGB HCT DIFFERENCE 0.3; MEAN CORPUSCULAR HEMOGLOBIN 34.6 pg (27.0-33.4); MEAN CORPUSCULAR HGB CONC 33.6 g/dL (32.0-36.0); MEAN CORPUSCULAR VOLUME 103 fl (80-97); RED BLOOD COUNT 3.09 10^6/uL (4.35-5.55); RED CELL DISTRIBUTION WIDTH 17.8 % (11.5-14.0); WHITE BLOOD COUNT 14.6 10^3/uL (4.0-10.5)
--- NOTE | 2017-07-19 06:48 | RADIOLOGY REPORT (SQ) ---
CHEST EXAM DESCRIPTION: CHEST SINGLE VIEW COMPLETED DATE/TIME: 07/19/2017 6:29 am REASON FOR STUDY: respiratory failure COMPARISON: Chest x-ray 07/18/2017, 07/17/2017 EXAM PARAMETERS: NUMBER OF VIEWS: One view TECHNIQUE: Single frontal radiograph of the chest. RADIATION DOSE: N/A LIMITATIONS: Patient's body habitus and portable technique. FINDINGS: TEMPORARY SUPPORT DEVICES:Endotracheal tube tip approximately 4.5 cm above the jose angel. NG tube terminates under the left hemidiaphragm, its tip is not included on this exam. Right IJ central line with the tip overlying the region of the right atrium. LUNGS AND PLEURA: There are low lung volumes with persistent airspace opacities at the right perihila r region and left lung base. Small left pleural effusion. No obvious pneumothorax. MEDIASTINUM AND HILAR STRUCTURES: No obvious masses. HEART AND VASCULAR STRUCTURES: The cardiac silhouette is obscured. No overt vascular congestion. IMPRESSION: Low lung volumes. Persistent airspace opacities at the right perihilar region and at th e left lung base. Small left pleural effusion. TECHNICAL DOCUMENTATION: JOB ID: [id number] [employer]- All Rights Reserved
[2017-07-19] MEDS ORDERED: NORMAL SALINE 1000 ML 1,000 ML IV PRN (07:56)
[2017-07-19] MEDS: LACTULOSE SYRUP 20 GM/30 ML UDCUP NG SCH (09:41)
[2017-07-19] MEDS: CIPROFLOXACIN 400 MG/D5W RTU 400 MG/200 ML RTUPB IV SCH (09:43)
[2017-07-19] MEDS: FUROSEMIDE INJ/PF 100 MG/10 ML SDV IV SCH (09:44)
--- NOTE | 2017-07-19 10:28 | PDOC TRANSFER SUMMARY ---
General Admission Date/PCP: 07/13/17 01:29 Admission Date: 07/13/17 Transfer Date: 07/19/17 Accepting Facility: [facility] Accepting Physician: Dr. Pelayo Resuscitation Status: Full Code - Transfer Diagnosis (1) Acute hypoxemic respiratory failure Is this a current diagnosis for this admission?: Yes (2) Pneumonia Diagnosis Summary: Klebsiella (3) Acute renal failure (ARF) Is this a current diagnosis for this admission?: Yes (4) Hepatorenal syndrome Is this a current diagnosis for this admission?: Yes (5) Anasarca Is this a current diagnosis for this admission?: Yes (6) UTI (urinary tract infection) Is this a current diagnosis for this admission?: Yes Diagnosis Summary: Klebsiella and pseudomonas aeruginosa (7) Hyperkalemia Is this a current diagnosis for this admission?: Yes (8) Hyponatremia Is this a current diagnosis for this admission?: Yes (9) Coagulopathy Is this a current diagnosis for this admission?: Yes (10) Anemia in chronic illness Is this a current diagnosis for this admission?: Yes (11) COPD (chronic obstructive pulmonary disease) Is this a current diagnosis for this admission?: Yes (12) Essential hypertension Is this a current diagnosis for this admission?: Yes (13) Diabetes mellitus type 2 in obese Is this a current diagnosis for this admission?: Yes (14) Cirrhosis Is this a current diagnosis for this admission?: Yes - Transfer Medications Home Medications: Atenolol [Tenormin] 100 mg PO DAILY 07/13/17 Diazepam 10 mg PO DAILY 07/13/17 Esomeprazole Magnesium [Nexium] 40 mg PO DAILY 07/13/17 Fluoxetine HCl [Prozac 20 mg Capsule] 20 mg PO DAILY 07/13/17 Losartan Potassium [Cozaar 100 mg Tablet] 100 mg PO DAILY 07/13/17 Simvastatin [Zocor 40 mg Tablet] 40 mg PO QHS 07/13/17 Transfer Medications: Current Medications Albuterol/Ipratropium (Duoneb 3 Ml Ampul) 3 ml NEB RTQ8 [facility]AWN Stop: 08/12/17 07:59 Last Admin: 07/19/17 08:08 Dose: 3 ml Dextrose (Dextrose Inj 50% Syringe (25 Gm/50 Ml)) 12.5 gm IV PRN PRN; Protocol PRN Reason: FOR BG 50-69 IN ALERT PATIENT Stop: 08/17/17 13:07 Dextrose (Dextrose Inj 50% Syringe (25 Gm/50 Ml)) 25 gm IV PRN PRN PRN Reason: Protocol Stop: 08/17/17 13:07 Glucagon (Glucagen Inj 1 Mg Vial) 1 mg IM PRN PRN; Protocol PRN Reason: EVALUATE FOR BG < 70 Stop: 08/17/17 13:07 Glucose (Glutose 40% Gel 15 Gm Tube) 15 gm PO PRN PRN; Protocol PRN Reason: FOR BG 50-69 IN ALERT PATIENT Stop: 08/17/17 13:07 Glucose (Glutose 40% Gel 15 Gm Tube) 30 gm PO PRN PRN; Protocol PRN Reason: FOR BG < 50 IN ALERT PATIENT Stop: 08/17/17 13:07 Dopamine HCl/Dextrose (Dopamine Rtu 800 Mg-D5w 250 Ml (Adult) Premix) 800 mg in 250 mls @ 0 mls/hr IV CONTINUOUS PRN; Protocol; Titrate PRN Reason: THIS MED IS NOT "PRN" Stop: 08/12/17 05:19 Last Admin: 07/18/17 15:41 Dose: 250 ml Propofol (Diprivan Rtu 1000 Mg/100 Ml Inf.Bottle) 100 mls @ 0 mls/hr IV CONTINUOUS PRN; Protocol; Titrate PRN Reason: THIS MED IS NOT "PRN" Stop: 08/12/17 09:30 Last Admin: 07/18/17 05:42 Dose: 100 ml Norepinephrine Bitartrate 4 mg (/ Dextrose) 250 mls @ 0 mls/hr IV CONTINUOUS PRN; Protocol; Titrate PRN Reason: THIS MED IS NOT "PRN" Stop: 08/14/17 16:20 Last Admin: 07/19/17 04:30 Dose: 4 mg Piperacillin Sod/Tazobactam (Sod 3.375 gm/ Sodium Chloride) 100 mls @ 200 mls/ hr IV Q8A [facility] Stop: 07/23/17 09:59 Last Admin: 07/19/17 09:43 Dose: 3.375 gm Ciprofloxacin/Dextrose (Cipro Rtu 400 Mg/D5w 200 Ml Premix Bag) 400 mg in 200 mls @ 200 mls/hr IV Q12 [facility] Stop: 07/24/17 09:59 Last Admin: 07/19/17 09:43 Dose: 200 ml Amino Acids (Clinimix 5%-25% Tpn Solution 1000 Ml Bag) 1,000 mls @ 45 mls/hr IV .CONTINUOUS PRN Stop: 08/17/17 13:07 Last Admin: 07/18/17 18:18 Dose: 1,000 ml Dextrose (D10w 1000 Ml Iv Soln) 1,000 mls @ 0 mls/hr IV .TEMPORARY PRN PRN Reason: As Directed Stop: 08/17/17 13:07 Sodium Chloride (Nacl 0.9% 1000 Ml Iv Soln) 1,000 mls @ 30 mls/hr IV CONTINUOUS PRN PRN Reason: THIS MED IS NOT "PRN" Stop: 08/17/17 07:51 Insulin Human Regular (Humulin R (Pyxis) Insulin 100 Unit/Ml 3ml) 0 - 12 unit SUBCUT Q6HP PRN PRN Reason: Protocol Stop: 08/17/17 13:07 Last Admin: 07/19/17 06:40 Dose: 8 unit Lactulose (Cephulac Syrup 20 Gm/30 Ml Udcup) 20 gm NG Q12 SHAWN Stop: 08/16/17 21:59 Last Admin: 07/19/17 09:41 Dose: 20 gm Magnesium Hydroxide (Milk Of Magnesia 30 Ml Udcup) 30 ml NG HSP PRN PRN Reason: FOR CONSTIPATION Stop: 08/12/17 01:28 Octreotide Acetate (Sandostatin Inj/Pf 100 Mcg/1 Ml Sdv) 100 mcg SUBCUT Q8 [facility]AWN Stop: 08/17/17 21:59 Last Admin: 07/19/17 06:01 Dose: 100 mcg Pharmacy Profile Note (Medication Communication Order) 1 each .NOTICE NR Stop: 08/12/17 12:29 - Allergies Allergies/Adverse Reactions: pregabalin [From Lyrica] Allergy (Verified 06/02/17 16:51) - Diet/Activity Discharge Diet: Other (Comments) - NPO on TPN Discharge Activity: Bedrest Hospital Course Hospital Course: The patient was admitted to [facility]. Patient was encephalopathic. He has absent gag reflex and therefore was intubated and transferred to the intensive care unit. Blood pressure was on the low side and patient started on dopamine renal dose and Levophed for titration to keep systolic blood pressure greater than 90. The patient was hydrated with intravenous fluids as well. Cultures were performed and broad-spectrum antibiotic was started. Initial creatinine was elevated and with hydration it has improved and has normalized. Culture of the urine grew Klebsiella pneumonia and eventually Pseudomonas aeruginosa. The patient was maintained on intravenous Zosyn based on culture. His sputum culture however was growing gram-negative rods as well and therefore ciprofloxacin was added intravenously. Course was noted for weight gain and increasing abdominal girth. The patient was tried on diuretics with Lasix intravenously and Aldactone. He was tried on nasogastric tube feedings but he did have high residuals and did not tolerate it. He was placed on intravenous Reglan but despite measure the residuals remain high and therefore the patient was placed on total parenteral nutrition. The patient's sputum culture eventually grew Klebsiella on preliminary report. Final culture report remains pending at this time. Patient was maintained on Zosyn and ciprofloxacin. In terms of the patient's ascites he was referred to interventional radiology for ultrasound-guided paracenteses for approximately 5-6 L of ascitic fluid was removed with administration of albumin.. Patient was able to tolerate weaning subsequently after the paracentesis but did not progress. Family was contacted and reportedly the patient has a living will and wanted everything done and is a full code. He was noted to have hypotension during routine nursing care and bathing and therefore albumin was again administered. His urine output started to drop. His creatinine started to increase again. He was given IV fluid boluses, Aldactone was discontinued and he was maintained on intravenous Lasix, and octreotide subcutaneously was started. The patient's urine output improved slightly but creatinine continues to increase. Diuretics was discontinued. At this point [facility] was contacted for transfer for specialty care including ski molder, nephrology service, hepatology service. Dr. Pelayo from the medical intensive care unit responded and accepted the patient for transfer. The rest of the hospital stays unremarkable. He was eventually transferred when a bed was available. Physical Exam Vital Signs: Temp Pulse Resp BP Pulse Ox 98.4 F 93 14 94/58 L 97 07/19/17 06:41 07/19/17 08:10 07/19/17 08:10 07/19/17 06:41 07/19/17 08:10 Intake & Output 07/18/17 07/19/17 07/20/17 06:59 06:59 06:59 Intake Total 3406 4396 Output Total 236 430 35 Balance 3170 3966 -35 Weight 144.1 kg 147.3 kg General appearance: PRESENT: no acute distress, morbidly obese, other - anasarca Head exam: PRESENT: normocephalic Eye exam: PRESENT: scleral icterus Ear exam: ABSENT: drainage Mouth exam: PRESENT: moist Neck exam: ABSENT: JVD - thick neck Respiratory exam: PRESENT: rhonchi - scattered bilateral, unlabored. ABSENT: wheezes Cardiovascular exam: PRESENT: RRR GI/Abdominal exam: PRESENT: diminished bowel sounds, distended, soft Extremities exam: PRESENT: +2 edema, other - anasarca Neurological exam: PRESENT: altered - sedated Skin exam: PRESENT: dry, jaundice, warm, other - feet cold to touch. ABSENT: cyanosis Results Laboratory Results: 07/19/17 05:30 07/19/17 05:30 07/19/17 07/19/17 07/19/17 05:30 05:30 05:40 WBC 14.6 H RBC 3.09 L Hgb 10.7 L Hct 31.8 L MCV 103 H MCH 34.6 H MCHC 33.6 RDW 17.8 H Plt Count 89 L Carbonic Acid 1.14 HCO3/H2CO3 Ratio 21:1 ABG pH 7.43 ABG pCO2 37.9 ABG pO2 70.0 L ABG HCO3 24.5 ABG O2 Saturation 94.6 ABG Base Excess 0.4 FiO2 30% Sodium 133.7 L Potassium 3.7 Chloride 100 Carbon Dioxide 25 Anion Gap 9 BUN 55 H Creatinine 1.69 H Est GFR ( Amer) 50 L Est GFR (Non-Af Amer) 41 L Glucose 305 H Calcium 8.1 L Phosphorus 3.7 Total Bilirubin 8.1 H AST 37 ALT 26 Alkaline Phosphatase 83 Total Protein 5.6 L Albumin 2.1 L Prealbumin 3.1 L 07/17/17 05:05 Tracheal Aspirate Gram Stain - Final 07/17/17 05:05 Tracheal Aspirate Sputum Culture - Final Klebsiella Pneumoniae Reduced Normal Mary Impressions: Paracentesis Ultrasound 07/15/17 08:54 IMPRESSION: Successful ultrasound-guided therapeutic paracentesis No laboratory studies on the fluid was ordered by the attending physician Chest X-Ray 07/19/17 06:00 IMPRESSION: Low lung volumes. Persistent airspace opacities at the right perihilar region and at the left lung base. Small left pleural effusion. Plan Discharge Plan: Transfer to [facility] for further evaluation and management. Time Spent: Less than 30 Minutes
[2017-07-19 12:27] VITALS: BP 100/66
[2017-07-20] MEDS ORDERED: FAT EMULSIONS 250 ML IV SCH (10:00)
== END 2017-07-19 13:15 | disposition short-term general hospital (02) | DRG 441 ==
LOC: ER 23:20 → EH 07-13 01:29 → 3W 07-13 04:21 → ICU 07-13 06:05
PROVIDERS: ADMIT Internal Medicine; ATTEND Internal Medicine
PROC: 0BH17EZ Insertion of Endotracheal Airway into Trachea, Via Natural or Artificial Opening (ICD-10-PCS; principal; 2017-07-13)
PROC: 5A1955Z Respiratory Ventilation, Greater than 96 Consecutive Hours (ICD-10-PCS; 2017-07-13)
PROC: 0W9G3ZX Drainage of Peritoneal Cavity, Percutaneous Approach, Diagnostic (ICD-10-PCS; 2017-07-15)
PROC: 02H633Z Insertion of Infusion Device into Right Atrium, Percutaneous Approach (ICD-10-PCS; 2017-07-16)
DX: K72.90 Hepatic failure, unspecified without coma (principal); K76.7 Hepatorenal syndrome; J15.0 Pneumonia due to Klebsiella pneumoniae; J96.01 Acute respiratory failure with hypoxia; N39.0 Urinary tract infection, site not specified; N17.9 Acute kidney failure, unspecified; E72.4 Disorders of ornithine metabolism; E87.1 Hypo-osmolality and hyponatremia; Z68.42 Body mass index [BMI] 45.0-49.9, adult; R18.8 Other ascites; D68.9 Coagulation defect, unspecified; E87.5 Hyperkalemia; I12.9 Hypertensive chronic kidney disease with stage 1 through stage 4 chronic kidney disease, or unspecified chronic kidney disease; K74.60 Unspecified cirrhosis of liver; M19.90 Unspecified osteoarthritis, unspecified site; J44.9 Chronic obstructive pulmonary disease, unspecified; N18.9 Chronic kidney disease, unspecified; E11.22 Type 2 diabetes mellitus with diabetic chronic kidney disease; E66.01 Morbid (severe) obesity due to excess calories; I95.89 Other hypotension; B96.5 Pseudomonas (aeruginosa) (mallei) (pseudomallei) as the cause of diseases classified elsewhere; Z88.8 Allergy status to other drugs, medicaments and biological substances; Z79.02 Long term (current) use of antithrombotics/antiplatelets; Z78.1 Physical restraint status
CPT/HCPCS: 31500; 36415; 49083; 71010; 80048; 80053; 80076; 80307; 81001; 82140; 82272; 82550; 82553; 82803; 82962; 83605; 83735; 84100; 84134; 84478; 84484; 85025; 85027; 85610; 85730; 86850; 86900; 86901; 87040; 87070; 87075; 87077; 87086; 87088; 87186; 87205; 89050; 93005; 93010; 94002; 94003; 96360; 99291; C1751; J0610; J0744; J1265; J1630; J1815; J1940; J2354; J2543; J2704; J2765; J3411; J3430; J3490; J7030; J7040; J7060; J7620; P9047; S0164